=== PATIENT | male | born 1955 | race American Indian/Alaskan Native ===

== ENCOUNTER 2017-05-21 17:07 | Emergency (ER) | payer SELFPAY ==
[2017-05-21 17:08] VITALS: BMI 22.7
[2017-05-21] MEDS ORDERED: Sodium Chloride 0.9% 1,000 ML IV STA (17:30)
--- NOTE | 2017-05-21 17:33 | ED PDOC ---
Arrival/HPI - General Chief Complaint: Alcohol Ingestion Time Seen by Provider: 05/21/17 17:29 Historian: Patient - History of Present Illness Narrative History of Present Illness (Text): 05/21/17 17:30 61 year old male presents to the Emergency department due to alcohol intoxication. Patient is not communicating/cooperating verbally. Patient is able to move extremities. Although patient is not answering questions, he does not have any overt complaints. Time/Duration: Prior to Arrival Symptom Onset: Gradual Symptom Course: Unchanged Context: Home Past Medical History - Provider Review Nursing Documentation Reviewed: Yes - Infectious Disease Hx of Infectious Diseases: None - Psychiatric Hx Psychophysiologic Disorder: No Hx Substance Use: No - Suicidal Assessment Feels Threatened In Home Enviroment: No Family/Social History - Physician Review Nursing Documentation Reviewed: Yes Smoking Status: Heavy Smoker > 10 Cigarettes Daily Hx Alcohol Use: Yes Hx Substance Use: No Allergies/Home Meds Allergies/Adverse Reactions: Allergies No Known Allergies Allergy (Verified 04/23/16 14:20) Home Medications: Home Meds Medication Instructions Recorded Confirmed No Known Home Med [No Known Home 04/23/14 04/23/16 Med] Review of Systems - Physician Review All systems were reviewed & negative as marked: Yes - Review of Systems Constitutional: Normal Eyes: Normal ENT: Normal Respiratory: Normal Cardiovascular: Normal Gastrointestinal: Normal Genitourinary Male: Normal Musculoskeletal: Normal Skin: Normal Endocrine: Normal Hemo/Lymphatic: Normal Physical Exam Vital Signs Temp Pulse Resp BP Pulse Ox 05/21/17 19:10 98 F 73 20 117/71 97 05/21/17 17:31 98.1 F 73 18 126/82 99 - Systems Exam Head: Present: Atraumatic, Normocephalic Pupils: Present: PERRL Conjunctiva: Present: Normal Mouth: Present: Moist Mucous Membranes Neck: Present: Normal Range of Motion Respiratory/Chest: Present: Clear to Auscultation, Good Air Exchange. No: Respiratory Distress, Accessory Muscle Use Cardiovascular: Present: Regular Rate and Rhythm, Normal S1, S2. No: Murmurs Abdomen: Present: Normal Bowel Sounds. No: Tenderness, Distention, Peritoneal Signs Back: Present: Normal Inspection Upper Extremity: Present: Normal Inspection. No: Cyanosis, Edema Skin: Present: Warm, Dry, Normal Color. No: Rashes Medical Decision Making ED Course and Treatment: 05/21/17 17:34 You were treated in the ED today for alcohol intoxication otherwise without any nausea/vomiting/headache/dizziness/difficulty breathing/chest pain/abdomen pain/ numbness/tingling/loss of limb function/pain with urination. You were otherwise breathing easily, good strength/sensation, clear lungs, no abdomen tenderness. your alcohol level 457. trop negative. alcohol 457. 05/21/17 19:13 1:1 for safety 05/21/17 20:00 soft 4pt restraints and 1:1 for safety. 05/21/17 23:35 ativan given 2mg and 2mg. CT head no ICH. white matter changes. signed out to Dr. Vieyra to fu sober status and disposition. - Lab Interpretations Lab Results: 05/21/17 18:45 05/21/17 18:45 Lab Results 05/21/17 18:45: Alcohol, Quantitative 457 H* 05/21/17 18:45: Salicylates < 1 L, Acetaminophen < 10.0 L 05/21/17 18:45: Sodium 148, Potassium 4.3, Chloride 109 H, Carbon Dioxide 26, Anion Gap 17, BUN 12, Creatinine 0.9, Est GFR ( Amer) > 60, Est GFR (Non- Af Amer) > 60, Random Glucose 89, Calcium 9.4, Total Bilirubin 0.2, AST 49, ALT 29, Alkaline Phosphatase 82, Troponin I < 0.01, Total Protein 7.9, Albumin 4.3, Globulin 3.6, Albumin/Globulin Ratio 1.2 05/21/17 18:45: WBC 6.1, RBC 3.93, Hgb 13.3 L, Hct 38.6 L, MCV 98.2, MCH 33.8, MCHC 34.5, RDW 12.6, Plt Count 246, MPV 9.2, Gran % 30.2 L, Lymph % (Auto) 62.1 H, [place] % (Auto) 6.0, Eos % (Auto) 1.2 L, Baso % (Auto) 0.5, Gran # 1.83, Lymph # 3.8 H, [place] # 0.4, Eos # 0.1, Baso # 0.03 05/21/17 17:47: POC Glucose (mg/dL) 82 I have reviewed the lab results: Yes - RAD Interpretation Radiology Orders: 05/21/17 17:32 HEAD W/O CONTRAST [CT] Stat Building Cleaner: Radiologist - EKG Interpretation Interpreted by ED Physician: Yes (NSR, flipped t waves avr, flattened avl) Type: 12 lead EKG - Medication Orders Current Medication Orders: Discontinued Medications Sodium Chloride (Sodium Chloride 0.9%) 1,000 mls @ 1,000 mls/hr IV .Q1H STA Stop: 05/21/17 18:29 Last Admin: 05/21/17 19:13 Dose: 1,000 mls/hr eMAR Start Stop Document 05/21/17 19:13 GMI (Rec: 05/21/17 19:13 GMI [id number]) Intravenous Solution Start Date 05/21/17 Start Time 19:13 End Date 05/21/17 End time 19:13 Total Infusion Time 0 Lorazepam (Ativan) 2 mg IVP ONCE ONE PRN Reason: Protocol Stop: 05/21/17 20:00 Last Admin: 05/21/17 20:20 Dose: 2 mg IVP Administration Document 05/21/17 20:20 IT (Rec: 05/21/17 20:20 IT [id number]) Charges for Administration # of IVP Administrations 1 Lorazepam (Ativan) 2 mg IVP ONCE ONE PRN Reason: Protocol Stop: 05/21/17 21:51 Last Admin: 05/21/17 22:04 Dose: 2 mg IVP Administration Document 05/21/17 22:04 IT (Rec: 05/21/17 22:04 IT [id number]) Charges for Administration # of IVP Administrations 1 - Scribe Statement The provider has reviewed the documentation as recorded by the Deysi Banegas Provider Scribe Attestation: All medical record entries made by the Dawitibtwyla were at my direction and personally dictated by me. I have reviewed the chart and agree that the record accurately reflects my personal performance of the history, physical exam, medical decision making, and the department course for this patient. I have also personally directed, reviewed, and agree with the discharge instructions and disposition. Disposition/Present on Arrival - Present on Arrival Any Indicators Present on Arrival: No History of DVT/PE: No History of Uncontrolled Diabetes: No Urinary Catheter: No History of Decub. Ulcer: No History Surgical Site Infection Following: None - Disposition Have Diagnosis and Disposition been Completed?: Yes Diagnosis: Alcohol intoxication Referrals: [employer] [facility], [Primary Care Provider] - Follow up with primary Forms: [employer] (Citizen Of [place])
[2017-05-21 19:07] LABS: BASO # 0.03 K/mm3 (0.0-2.0); BASO % 0.5 % (0.0-3.0); EOS # 0.1 (0.0-0.7); EOS % 1.2 % (1.5-5.0); GRAN # 1.83 (1.4-6.5); GRAN % 30.2 % (50.0-68.0); HEMOGLOBIN 13.3 g/dL (14.0-18.0); LYMPH # 3.8 (1.2-3.4); LYMPH % 62.1 % (22.0-35.0); MEAN CELL VOLUME 98.2 fl (80.0-105.0); MEAN CORPUSCULAR HEMOGLOBIN 33.8 pg (25.0-35.0); MEAN CORPUSCULAR HGB CONC 34.5 g/dl (31.0-37.0); MEAN PLATELET VOLUME 9.2 fl (7.0-11.0); MONO # 0.4 (0.1-0.6); RBC 3.93 10^6/uL (3.5-6.1); RED CELL DISTRIBUTION WIDTH 12.6 % (11.5-14.5); WHITE BLOOD COUNT 6.1 10^3/ul (4.5-11.0)
[2017-05-21 19:11] VITALS: TEMP 98
[2017-05-21 19:18] LABS: ALB/GLOB RATIO 1.2 (1.1-1.8); ALBUMIN 4.3 g/dL (3.0-4.8); ALT/SGPT 29 U/L (7-56); AST/SGOT 49 U/L (17-59); BLOOD UREA NITROGEN 12 mg/dL (7-21); CALCIUM 9.4 mg/dL (8.4-10.5); GFR AFRICAN-AMERICAN > 60; GFR NON-AFRICAN AMERICAN > 60
[2017-05-21 19:19] LABS: ACETAMINOPHEN < 10.0 ug/ml (10.0-20.0); SALICYLATE < 1 mg/dL (2.0-20.0)
[2017-05-21 19:29] LABS: TROPONIN I < 0.01 ng/mL
--- NOTE | 2017-05-21 23:02 | CT ---
EXAM: CT Head Without Intravenous Contrast CLINICAL HISTORY: 61 years old, male; Screening exam; Additional info: 61yom, ETOH, found on ground TECHNIQUE: Axial computed tomography images of the head/brain without intravenous contrast. All CT scans at this facility use one or more dose reduction techniques, viz.: automated exposure control; ma/kV adjustment per patient size (including targeted exams where dose is matched to indication; i.e. head); or iterative reconstruction technique. Coronal and sagittal reformatted images were created and reviewed. COMPARISON: CT - HEAD W/O CONTRAST 2016-04-23 15:55 FINDINGS: Brain: Gijs-qg-cyuuoegy atrophy. No intracranial hemorrhage. No mass. Few scattered foci of decreased attenuation within periventricular/subcortical white matter. No definite edema. Ventricles: No hydrocephalus. Bones/joints: No acute fracture. Soft tissues: Unremarkable. Vasculature: Atherosclerotic disease of intracranial arteries. Sinuses: Postsurgical changes. Woft-oc-eddikhkz mucosal thickening of LEFT maxillary sinus. Mastoid air cells: No mastoid effusion. Orbits: Unremarkable as visualized. IMPRESSION: 1. Nonspecific white matter changes. Acute infarction may be CT occult within first 24 hours. If a focal deficit persists, consider followup CT or MRI for further evaluation. 2. Incidental/non-acute findings are described above.
--- NOTE | 2017-05-22 00:09 | ED PDOC ---
Physical Exam Vital Signs Temp Pulse Resp BP Pulse Ox 05/22/17 05:54 68 17 134/78 98 05/22/17 03:01 62 17 110/72 98 05/22/17 00:04 64 17 120/82 98 05/21/17 19:10 98 F 73 20 117/71 97 05/21/17 17:31 98.1 F 73 18 126/82 99 Finger Stick Blood Glucose: 82 Medical Decision Making ED Course and Treatment: 05/21/17 23:00 Case endorsed to me by Dr. Polk, pending sobriety, re-assessment, and final disposition. 05/22/17 05:56 Pt awake, alert, ambulating with steady gait, Clinically sober. pt stable for d/ c. - Lab Interpretations Lab Results: 05/21/17 18:45 05/21/17 18:45 Lab Results 05/21/17 18:45: Alcohol, Quantitative 457 H* 05/21/17 18:45: Salicylates < 1 L, Acetaminophen < 10.0 L 05/21/17 18:45: Sodium 148, Potassium 4.3, Chloride 109 H, Carbon Dioxide 26, Anion Gap 17, BUN 12, Creatinine 0.9, Est GFR ( Amer) > 60, Est GFR (Non- Af Amer) > 60, Random Glucose 89, Calcium 9.4, Total Bilirubin 0.2, AST 49, ALT 29, Alkaline Phosphatase 82, Troponin I < 0.01, Total Protein 7.9, Albumin 4.3, Globulin 3.6, Albumin/Globulin Ratio 1.2 05/21/17 18:45: WBC 6.1, RBC 3.93, Hgb 13.3 L, Hct 38.6 L, MCV 98.2, MCH 33.8, MCHC 34.5, RDW 12.6, Plt Count 246, MPV 9.2, Gran % 30.2 L, Lymph % (Auto) 62.1 H, [place] % (Auto) 6.0, Eos % (Auto) 1.2 L, Baso % (Auto) 0.5, Gran # 1.83, Lymph # 3.8 H, [place] # 0.4, Eos # 0.1, Baso # 0.03 05/21/17 17:47: POC Glucose (mg/dL) 82 - RAD Interpretation Radiology Orders: 05/21/17 17:32 HEAD W/O CONTRAST [CT] Stat - Medication Orders Current Medication Orders: Discontinued Medications Sodium Chloride (Sodium Chloride 0.9%) 1,000 mls @ 1,000 mls/hr IV .Q1H STA Stop: 05/21/17 18:29 Last Admin: 05/21/17 19:13 Dose: 1,000 mls/hr eMAR Start Stop Document 05/21/17 19:13 GMI (Rec: 05/21/17 19:13 GMI [id number]) Intravenous Solution Start Date 05/21/17 Start Time 19:13 End Date 05/21/17 End time 19:13 Total Infusion Time 0 Lorazepam (Ativan) 2 mg IVP ONCE ONE PRN Reason: Protocol Stop: 05/21/17 20:00 Last Admin: 05/21/17 20:20 Dose: 2 mg IVP Administration Document 05/21/17 20:20 IT (Rec: 05/21/17 20:20 IT [id number]) Charges for Administration # of IVP Administrations 1 Lorazepam (Ativan) 2 mg IVP ONCE ONE PRN Reason: Protocol Stop: 05/21/17 21:51 Last Admin: 05/21/17 22:04 Dose: 2 mg IVP Administration Document 05/21/17 22:04 IT (Rec: 05/21/17 22:04 IT [id number]) Charges for Administration # of IVP Administrations 1 Disposition/Present on Arrival - Present on Arrival Any Indicators Present on Arrival: No History of DVT/PE: No History of Uncontrolled Diabetes: No Urinary Catheter: No History of Decub. Ulcer: No History Surgical Site Infection Following: None - Disposition Have Diagnosis and Disposition been Completed?: Yes Diagnosis: Alcohol intoxication Disposition: HOME/ ROUTINE Disposition Time: 05:56 Condition: GOOD Discharge Instructions (ExitCare): Alcohol Intoxication (ED) Referrals: [facility] [facility], [Non-Staff] - Follow up with primary Forms: [employer] (Citizen Of [place])
[2017-05-22 06:06] LABS: URINE BILIRUBIN NEGATIVE (NEGATIVE); URINE BLOOD NEGATIVE (NEGATIVE); URINE GLUCOSE (UA) NEGATIVE (NEGATIVE); URINE LEUKOCYTE ESTERASE TRACE Leu/uL (NEGATIVE); URINE NITRATE NEGATIVE (NEGATIVE); URINE PROTEIN NEGATIVE mg/dL (<30 mg/dL); URINE UROBILINOGEN 0.2 E.U./dL (<1 E.U./dL)
[2017-05-22 06:11] LABS: URINE APPEARANCE CLEAR (CLEAR); URINE COLOR STRAW (YELLOW)
[2017-05-22 06:28] LABS: BARBITURATES, UR NEGATIVE (NEGATIVE); BENZODIAZEPINES, UR NEGATIVE (NEGATIVE); OPIATES, UR NEGATIVE (NEGATIVE); PHENCYCLIDINE, UR NEGATIVE (NEGATIVE)
[2017-05-22 06:34] LABS: URINE EPITHELIAL CELLS 0 - 2 /hpf (0-5); URINE RBC 0 - 2 /hpf (0-2); URINE WBC 0 - 2 /hpf (0-6)
--- NOTE | 2017-05-22 09:35 | CARD ---
APPROVED REPORT EKG Measurement Heart [id number] <Conclusion> Normal sinus rhythm LAD
[2017-05-22 09:38] VITALS: BP 116/75; PULSE 73; RESP 18; O2SAT 98
== END 2017-05-22 09:40 | disposition home or self-care (01) ==
LOC: ED 17:07
DX: F10.129 Alcohol abuse with intoxication, unspecified (principal); F17.210 Nicotine dependence, cigarettes, uncomplicated
CPT/HCPCS: 70450; 80053; 81001; 82948; 84484; 85025; 87086; 93005; 96374; 96376; 99285; G0480; J2060; J7040

== ENCOUNTER 2018-01-22 06:34 | Inpatient (IN) | payer MEDICAID, OTHER ==
[2018-01-22 07:32] LABS: BASO # 0.02 K/mm3 (0.0-2.0); BASO % 0.4 % (0.0-3.0); EOS % 0.2 % (1.5-5.0); GRAN # 3.33 (1.4-6.5); GRAN % 63.5 % (50.0-68.0); LYMPH # 1.5 (1.2-3.4); LYMPH % 28.8 % (22.0-35.0); MEAN CORPUSCULAR HEMOGLOBIN 32.7 pg (25.0-35.0); MEAN CORPUSCULAR HGB CONC 33.7 g/dl (31.0-37.0); MONO # 0.4 (0.1-0.6); MONO % 7.1 % (1.0-6.0); RBC 3.67 10^6/uL (3.5-6.1); RED CELL DISTRIBUTION WIDTH 12.8 % (11.5-14.5); WHITE BLOOD COUNT 5.2 10^3/ul (4.5-11.0)
--- NOTE | 2018-01-22 07:36 | ED PDOC ---
Arrival/HPI - General Historian: Patient, Spouse EM Caveat: Altered Mental Status - History of Present Illness Time/Duration: Prior to Arrival Symptom Onset: Sudden Activities at Onset: Rest Context: Sitting, Home <Daryn Cheung - Last Filed: 01/22/18 18:21> <Neo Bacon DO - Last Filed: 01/22/18 18:41> - General Chief Complaint: Altered Mental Status Time Seen by Provider: 01/22/18 07:04 - History of Present Illness Narrative History of Present Illness (Text): 01/22/18 07:30 62 yo M with Past medical history of alcohol abuse presenting to Emergency department for AMS and apparent seizure episode after found him shaking on couch. Patient at bedside is alert but minimally verbal. History obtained by at bedside. Per , patient had diarrhea and went to the bathroom. He then sat on the couch and watched tv when he began to shake. endorses LOC as patient was not responsive, continued shaking for about 5-10 mins, fell off the couch while shaking. Denies any head trauma. Denies any hx of seizures or past seizure-type activity. No fevers/chills, headaches, dizziness, chest pain, palpitations, sob, cough, abdominal pain, nausea/vomiting/constipation, dysuria , or changes in stool. Past medical history : alcohol abuse PSHx: denies Allergies: NKDA Home medications: denies Family Hx: denies Social Hx: alcohol: per -2 cans beer/day, per -"alot" tobacco: 1 ppd for several years denies illicit drug use 01/22/18 07:37 01/22/18 07:37 (Daryn Cheung) Past Medical History - Provider Review Nursing Documentation Reviewed: Yes - Travel History Have you recently traveled outside [place] w/in the past 3 mons?: No - Infectious Disease Hx of Infectious Diseases: None - Past Medical History Past Medical History: No Previous (No chronic diseases) - Psychiatric Hx Psychophysiologic Disorder: No Hx Substance Use: No - Past Surgical History Past Surgical History: No Previous - Anesthesia Hx Anesthesia: No - Suicidal Assessment Feels Threatened In Home Enviroment: No <Daryn Cheung - Last Filed: 01/22/18 18:21> <Neo Bacon DO - Last Filed: 01/22/18 18:41> - Patient History Narrative Patient History: alcohol abuse (Daryn Cehung) Family/Social History - Physician Review Nursing Documentation Reviewed: Yes Family/Social History: No Known Family HX Smoking Status: Heavy Smoker > 10 Cigarettes Daily Hx Alcohol Use: Yes Frequency of alcohol use: Daily Hx Substance Use: No <Daryn Cheung - Last Filed: 01/22/18 18:21> Allergies/Home Meds <Daryn Cheung - Last Filed: 01/22/18 18:21> <Neo Bacon DO - Last Filed: 01/22/18 18:41> Allergies/Adverse Reactions: Allergies No Known Allergies Allergy (Verified 04/23/16 14:20) Review of Systems - Physician Review All systems were reviewed & negative as marked: Yes - Review of Systems Constitutional: Normal Eyes: Normal ENT: Normal Respiratory: Normal Cardiovascular: Normal Gastrointestinal: Diarrhea. absent: Abdominal Pain, Constipation, Nausea, Vomiting Genitourinary Male: Normal Musculoskeletal: Normal Skin: Normal Neurological: Normal Endocrine: Normal Hemo/Lymphatic: Normal Psychiatric: Normal <Daryn Cheung - Last Filed: 01/22/18 18:21> Physical Exam Vital Signs Reviewed: Yes Blood Pressure: Hypertensive Pulse: Regular Respiratory Rate: Normal Appearance: Positive for: Non-Toxic, Comfortable Pain Distress: None Mental Status: Positive for: Confused, other (A&Ox2) Finger Stick Blood Glucose: 136 - Systems Exam Head: Present: Atraumatic, Normocephalic Extroacular Muscles: Present: EOMI Mouth: Present: Moist Mucous Membranes Pharnyx: Present: Normal Nose (External): Present: Atraumatic Nose (Internal): Present: Normal Inspection Neck: Present: Normal Range of Motion Respiratory/Chest: Present: Clear to Auscultation, Accessory Muscle Use. No: Wheezes, Rales, Rhonchi Cardiovascular: Present: Regular Rate and Rhythm, Normal S1, S2. No: Murmurs Abdomen: Present: Normal Bowel Sounds. No: Tenderness, Distention, Rebound, Guarding Upper Extremity: Present: Normal Inspection, NORMAL PULSES, Capillary Refill < 2s Lower Extremity: Present: Normal Inspection, NORMAL PULSES, Capillary Refill < 2 s Neurological: Present: CN II-XII Intact, Speech Normal Skin: Present: Warm, Dry, Normal Color Psychiatric: Present: Alert (A&Ox2) <Daryn Cheung - Last Filed: 01/22/18 18:21> Vital Signs Temp Pulse Resp BP Pulse Ox 01/22/18 11:56 98.1 F 19 98 01/22/18 08:30 98.0 F 75 19 150/70 99 01/22/18 06:42 71 18 152/62 H 98 Medical Decision Making - EKG Interpretation Interpreted by ED Physician: Yes Type: 12 lead EKG <Daryn Cheung - Last Filed: 01/22/18 18:21> - RAD Interpretation Hand Trucker: Radiologist <Arleen Neo - Last Filed: 01/22/18 18:41> ED Course and Treatment: 01/22/18 07:59 Impression: withdrawal symptoms 2/2 alcohol abuse Differential Diagnosis included but are not limited to: alcohol abuse withdrawal symptoms due to alcohol abuse Plan: -- CBC, CMP -- UDS -- EKG -- CT head -- Chest X-Ray -- Urinalysis -- Reassess and disposition Prior Visits: Notes and results from previous visits were reviewed. Patient was last seen in the emergency department on 05/21/2017 for alcohol abuse Progress Notes: (Daryn Cheung) 01/22/18 08:00 Impression: 62 year old male presents to the Emergency department for AMS and apparent seizure episode after found him shaking on couch. Patient Seen with Resident: In agreement with resident note which contains more details about the patient. Patient seen and evaluated with resident. Came up with plan and treatment together. Prior Visits: Notes and results from previous visits were reviewed. Patient was last seen in the emergency department on 05/21/17 due to alcohol intoxication. Patient was discharged home and directed to follow up with PMD. Progress Notes: X-Ray of chest reviewed by radiologist, shows: Dictator : Star Nicholson MD Report Date : 01/22/2018 09:06:59 FINDINGS: LUNGS: Lungs appear hyperinflated which may be secondary to emphysema or COPD. Slight cord increased/coarsened interstitial markings both lung bases right greater than left. In addition, there is also minor discrete linear atelectasis/ scarring changes right lung base.. There is a vague elliptical shaped density which overlies the inferolateral margin of the right scapula that may represent bony artifact related to the scapula itself or possibly a bone island/osteoma however the possibility of a parenchymal nodule not completely excluded. Followup nonemergent CT scan of the chest recommended. PLEURA: No significant pleural effusion identified, no pneumothorax apparent. CARDIOVASCULAR: Normal. OSSEOUS STRUCTURES: No significant abnormalities. VISUALIZED UPPER ABDOMEN: Normal. OTHER FINDINGS: None. IMPRESSION: Lungs appear hyperinflated which may be secondary to emphysema or COPD. Slight cord increased/coarsened interstitial markings both lung bases right greater than left. In addition, there is also minor discrete linear atelectasis/ scarring changes right lung base.. There is a vague elliptical shaped density which overlies the inferolateral margin of the right scapula that may represent bony artifact related to the scapula itself or possibly a bone island/osteoma however the possibility of a parenchymal nodule not completely excluded. Followup nonemergent CT scan of the chest recommended. CT of head reviewed by radiologist, shows: Dictator : Star Nicholson MD Report Date : 01/22/2018 09:45:54 FINDINGS: HEMORRHAGE: No acute parenchymal, subarachnoid or extra-axial hemorrhage. BRAIN: Moderate diffuse/chronic periventricular white matter ischemic changes are again seen extending peripherally into the deep and subcortical white matter both cerebral hemispheres.,. Additionally, there may also be a few tiny chronic bilateral basal nuclei lacunar type infarcts note that the possibility of a small hyperacute infarct not excluded. Clinical correlation recommended. Moderate generalized volume loss. Minor vascular calcifications both carotid siphons VENTRICLES: No obstructive hydrocephalus. CALVARIUM: Calvarium intact. PARANASAL SINUSES: Unremarkable as visualized. No significant inflammatory changes. MASTOID AIR CELLS: Unremarkable as visualized. No inflammatory changes. OTHER FINDINGS: None. IMPRESSION: No acute intracranial hemorrhage. Moderate chronic white matter ischemic changes with a few scattered chronic bilateral basal nuclei lacunar type infarcts. Moderate generalized volume loss. 01/22/18 10:[address] Heredia who is aware of and agrees with plan. Patient will be admitted to remote telemetry. (Neo Bacon DO) - Lab Interpretations Lab Results: 01/22/18 07:10 01/22/18 07:10 Lab Results 01/22/18 09:12: Urine Opiates Screen Negative, Urine Methadone Screen Negative, Ur Barbiturates Screen Negative, Ur Phencyclidine Scrn Negative, Ur Amphetamines Screen Negative, U Benzodiazepines Scrn Negative, U Oth Cocaine Metabols Negative, U Cannabinoids Screen Negative 01/22/18 09:12: Urine Color Yellow, Urine Appearance Clear, Urine pH 6.0, Ur Specific [place] >= 1.030, Urine Protein 100 H, Urine Glucose (UA) Negative, Urine Ketones 15 H, Urine Blood Trace-lysed H, Urine Nitrate Negative, Urine Bilirubin Negative, Urine Urobilinogen 0.2, Ur Leukocyte Esterase Negative, Urine RBC 2 - 5, Urine WBC 0 - 2, Ur Epithelial Cells 0 - 2, Amorphous Sediment Few, Urine Bacteria Many, Coarse Granular Casts Trace H 01/22/18 07:10: Alcohol, Quantitative < 10 01/22/18 07:10: Sodium 136, Potassium 4.5, Chloride 99, Carbon Dioxide 21, Anion Gap 20, BUN 6 L, Creatinine 0.8, Est GFR ( Amer) > 60, Est GFR (Non -Af Amer) > 60, Random Glucose 137 H, Calcium 9.3, Phosphorus 4.1, Magnesium 1.5 L, Total Bilirubin 0.8, AST 123 H D, ALT 42, Alkaline Phosphatase 90, Lactate Dehydrogenase 529, Total Creatine Kinase 214, Troponin I < 0.01, Total Protein 7.9, Albumin 4.5, Globulin 3.4, Albumin/Globulin Ratio 1.3, Triglycerides 81, Cholesterol 218 H, LDL Cholesterol Direct 86, HDL Cholesterol 110 H 01/22/18 07:10: WBC 5.2, RBC 3.67, Hgb 12.0 L, Hct 35.6 L, MCV 97.0, MCH 32.7, MCHC 33.7, RDW 12.8, Plt Count 191, MPV 10.0, Gran % 63.5, Lymph % (Auto) 28.8, [place] % (Auto) 7.1 H, Eos % (Auto) 0.2 L, Baso % (Auto) 0.4, Gran # 3.33, Lymph # (Auto) 1.5, [place] # (Auto) 0.4, Eos # (Auto) 0.0, Baso # (Auto) 0.02 - RAD Interpretation Radiology Orders: 01/22/18 07:10 CHEST PORTABLE [RAD] Stat 01/22/18 07:11 HEAD W/O CONTRAST [CT] Stat - EKG Interpretation EKG Interpretation (Text): 01/22/18 07:54 NSR 68bpm, possible L atrial enlargement 01/22/18 09:19 (Daryn Cheung) - Medication Orders Current Medication Orders: Albuterol/Ipratropium (Duoneb 3 Mg/0.5 Mg (3 Ml) Ud) 3 ml IH Q6H PRN PRN Reason: Shortness of Breath Famotidine (Pepcid) 20 mg IVP DAILY CRISTAL Folic Acid (Folic Acid) 1 mg PO DAILY CRISTAL Heparin Sodium (Porcine) (Heparin) 5,000 units SC Q12 CRISTAL PRN Reason: Protocol Multivitamins/Vitamin C 10 ml/Thiamine HCl 100 mg/ Folic Acid 1 mg/ Sodium Chloride 1,011.2 mls @ 100 mls/hr IV .Q10H7M ONE Stop: 01/22/18 19:34 Last Admin: 01/22/18 11:03 Dose: 100 mls/hr eMAR Start Stop Document 01/22/18 11:03 [email or web address] (Rec: 01/22/18 11:03 [email or web address] [id number]) Intravenous Solution Start Date 01/22/18 Start Time 11:03 Lorazepam (Ativan) 1 mg IVP Q4H PRN; Protocol PRN Reason: Seizure activity Last Admin: 01/22/18 14:41 Dose: 1 mg IVP Administration Document 01/22/18 14:41 [facility] (Rec: 01/22/18 14:[facility] Charges for Administration # of IVP Administrations 1 Behavioural Document 01/22/18 14:41 [facility] (Rec: 01/22/18 14:42 [facility] Maintenance Maintenance Dose No Nonmedicinal Nonmedicinal Interventions Redirect Therapeutic Communication Behavior Behavior for Medication: Anxiety Behavior Comment etoh wd; tremors, mild anxiety , mild agitation Re-Assess: Reassess Psych Meds Document 01/22/18 15:11 [facility] (Rec: 01/22/18 16:58 [id number]) Reassess Psych Med Effective Multivitamins (Thera Tab) 1 tab PO DAILY CRISTAL Nicotine (Nicoderm Cq) 1 patch TD DAILY CRISTAL Ondansetron HCl (Zofran Inj) 4 mg IVP Q6H PRN PRN Reason: Nausea/Vomiting Thiamine HCl (Vitamin B1 Tab) 100 mg PO DAILY CRISTAL Discontinued Medications Magnesium Sulfate (Magnesium Sulfate 2 Gm/50 Ml Water) 2 gm in 50 mls @ 50 mls/ hr IVPB ONCE ONE Stop: 01/22/18 10:44 Last Admin: 01/22/18 11:04 Dose: 50 mls/hr eMAR Start Stop Document 01/22/18 11:04 [email or web address] (Rec: 01/22/18 11:04 [email or web address] [id number]) Intravenous Solution Start Date 01/22/18 Start Time 11:04 Ceftriaxone Sodium (Rocephin 1 Gram Ivpb) 1 gm in 100 mls @ 100 mls/hr IVPB STAT STA PRN Reason: Protocol Stop: 01/22/18 11:33 Last Admin: 01/22/18 12:41 Dose: Not Given Non-Admin Reason: Patient Refused Magnesium Sulfate (Magnesium Sulfate 2 Gm/50 Ml Water) 2 gm in 50 mls @ 50 mls/ hr IVPB ONCE ONE Stop: 01/22/18 11:42 Last Admin: 01/22/18 11:21 Dose: 50 mls/hr eMAR Start Stop Document 01/22/18 11:21 [email or web address] (Rec: 01/22/18 11:21 [email or web address] [id number]) Intravenous Solution Start Date 01/22/18 Start Time 11:21 Lorazepam (Ativan) 2 mg IVP STAT STA PRN Reason: Protocol Stop: 01/22/18 09:31 Last Admin: 01/22/18 11:04 Dose: 2 mg IVP Administration Document 01/22/18 11:04 [email or web address] (Rec: 01/22/18 11:04 [email or web address] [id number]) Charges for Administration # of IVP Administrations 1 Pneumococcal Polyvalent Vaccine (Pneumovax 23 Vaccine) 0.5 ml IM .ONCE ONE Stop: 01/22/18 14:03 <Daryn Cheung - Last Filed: 01/22/18 18:21> - PA / POSTAL SUPERVISOR / Resident Statement [facility] has reviewed & agrees with the documentation as recorded. [facility] has examined the patient and agrees with the treatment plan. - Scribe Statement The provider has reviewed the documentation as recorded by the Scribe <Neo Bacon DO - Last Filed: 01/22/18 18:41> - Scribe Statement Rashmi Erwin All medical record entries made by the Scribe were at my direction and personally dictated by me. I have reviewed the chart and agree that the record accurately reflects my personal performance of the history, physical exam, medical decision making, and the department course for this patient. I have also personally directed, reviewed, and agree with the discharge instructions and disposition. (Neo Bacon DO) Disposition/Present on Arrival - Present on Arrival Any Indicators Present on Arrival: No History of DVT/PE: No History of Uncontrolled Diabetes: No Urinary Catheter: No History of Decub. Ulcer: No History Surgical Site Infection Following: None - Disposition Have Diagnosis and Disposition been Completed?: Yes Disposition Time: 10:35 <Daryn Cheung - Last Filed: 01/22/18 18:21> - Disposition Disposition Time: 09:30 <Neo Bacon DO - Last Filed: 01/22/18 18:41> - Disposition Diagnosis: Withdrawal symptoms, alcohol Disposition: HOSPITALIZED Patient Problems: Current Active Problems Problem Status Onset Withdrawal symptoms, alcohol Acute Condition: STABLE
[2018-01-22 07:40] LABS: ALB/GLOB RATIO 1.3 (1.1-1.8); ALBUMIN 4.5 g/dL (3.0-4.8); ALT/SGPT 42 U/L (7-56); AST/SGOT 123 U/L (17-59); BLOOD UREA NITROGEN 6 mg/dL (7-21); CALCIUM 9.3 mg/dL (8.4-10.5); GFR NON-AFRICAN AMERICAN > 60
[2018-01-22 07:50] LABS: TROPONIN I < 0.01 ng/mL
--- NOTE | 2018-01-22 09:08 | RAD ---
Date of service: 01/22/2018 HISTORY: r/o infiltrate COMPARISON: No prior study available for comparison. FINDINGS: LUNGS: Lungs appear hyperinflated which may be secondary to emphysema or COPD. Slight cord increased/coarsened interstitial markings both lung bases right greater than left. In addition, there is also minor discrete linear atelectasis/scarring changes right lung base.. There is a vague elliptical shaped density which overlies the inferolateral margin of the right scapula that may represent bony artifact related to the scapula itself or possibly a bone island/osteoma however the possibility of a parenchymal nodule not completely excluded. Followup nonemergent CT scan of the chest recommended. PLEURA: No significant pleural effusion identified, no pneumothorax apparent. CARDIOVASCULAR: Normal. OSSEOUS STRUCTURES: No significant abnormalities. VISUALIZED UPPER ABDOMEN: Normal. OTHER FINDINGS: None. IMPRESSION: Lungs appear hyperinflated which may be secondary to emphysema or COPD. Slight cord increased/coarsened interstitial markings both lung bases right greater than left. In addition, there is also minor discrete linear atelectasis/scarring changes right lung base.. There is a vague elliptical shaped density which overlies the inferolateral margin of the right scapula that may represent bony artifact related to the scapula itself or possibly a bone island/osteoma however the possibility of a parenchymal nodule not completely excluded. Followup nonemergent CT scan of the chest recommended.
[2018-01-22 09:23] LABS: URINE BILIRUBIN NEGATIVE (NEGATIVE); URINE BLOOD TRACE-LYSED (NEGATIVE); URINE GLUCOSE (UA) NEGATIVE (NEGATIVE); URINE LEUKOCYTE ESTERASE NEGATIVE Leu/uL (NEGATIVE); URINE PROTEIN 100 mg/dL (<30 mg/dL); URINE UROBILINOGEN 0.2 E.U./dL (<1 E.U./dL)
[2018-01-22 09:26] LABS: URINE APPEARANCE CLEAR (CLEAR); URINE COLOR YELLOW (YELLOW)
[2018-01-22 09:28] LABS: URINE BACTERIA MANY (NEG); URINE EPITHELIAL CELLS 0 - 2 /hpf (0-5); URINE WBC 0 - 2 /hpf (0-6)
[2018-01-22] MEDS ORDERED: Multivitamin (MVI) 10 ML, Thiamine 100 MG, Folic Acid 1 MG in Sodium Chloride 0.9% 1,00... IV ONE (09:28)
[2018-01-22 09:29] LABS: URINE AMORPHOUS SEDIMENT FEW; URINE COARSE GRANULAR CAST TRACE /hpf (0-2)
[2018-01-22] MEDS ORDERED: Magnesium Sulfate 1 gm in D5W 1 GM/100 ML BAG IVPB ONE ×2 (09:29→09:31)
[2018-01-22 09:38] LABS: BARBITURATES, UR NEGATIVE (NEGATIVE); BENZODIAZEPINES, UR NEGATIVE (NEGATIVE); OPIATES, UR NEGATIVE (NEGATIVE); PHENCYCLIDINE, UR NEGATIVE (NEGATIVE)
[2018-01-22] MEDS ORDERED: Magnesium Sulfate 2 GM in 50 ml Water IVPB ONE (09:45)
--- NOTE | 2018-01-22 09:45 | CARD ---
APPROVED REPORT Date of service: 01/22/2018 EKG Measurement Heart [id number] <Conclusion> Normal sinus rhythm LAD QS in V1, c/w Septal AK, new since 05/21/17
--- NOTE | 2018-01-22 09:47 | CT ---
Date of service: 01/22/2018 PROCEDURE: CT HEAD WITHOUT CONTRAST. HISTORY: s/p fall - r/o ICH and fx COMPARISON: Comparison made with CT scan of the brain 05/21/2017. TECHNIQUE: Axial computed tomography images were obtained through the head/brain without intravenous contrast. Radiation dose: Total exam DLP = 814.33 mGy-cm. This CT exam was performed using one or more of the following dose reduction techniques: Automated exposure control, adjustment of the mA and/or kV according to patient size, and/or use of iterative reconstruction technique. FINDINGS: HEMORRHAGE: No acute parenchymal, subarachnoid or extra-axial hemorrhage. BRAIN: Moderate diffuse/chronic periventricular white matter ischemic changes are again seen extending peripherally into the deep and subcortical white matter both cerebral hemispheres.,. Additionally, there may also be a few tiny chronic bilateral basal nuclei lacunar type infarcts note that the possibility of a small hyperacute infarct not excluded. Clinical correlation recommended. Moderate generalized volume loss. Minor vascular calcifications both carotid siphons VENTRICLES: No obstructive hydrocephalus. CALVARIUM: Calvarium intact. PARANASAL SINUSES: Unremarkable as visualized. No significant inflammatory changes. MASTOID AIR CELLS: Unremarkable as visualized. No inflammatory changes. OTHER FINDINGS: None. IMPRESSION: No acute intracranial hemorrhage. Moderate chronic white matter ischemic changes with a few scattered chronic bilateral basal nuclei lacunar type infarcts. Moderate generalized volume loss.
[2018-01-22] MEDS ORDERED: cefTRIAXone 1 gm 1 GM/100 ML BAG IVPB STA (10:34)
--- NOTE | 2018-01-22 10:42 | CP.PCM.HP ---
<Alyssa Camara - Last Filed: 01/22/18 13:24> History of Present Illness - History of Present Illness History of Present Illness: Please note history as per at bedside as patient is a poor historian and was ao x 1 to self. 62yo male PMHx EtOH abuse presents s/p witnessed seizure this AM. Patient's noted that he fell to the ground and his entire body and lower jaw were shaking uncontrollably with his eyes rolled back. Patient did not have any loss of bladd er/bowel continence and no biting of the tongue or frothing at the mouth. Patient's reports this was the first time he has had such an episode. She reported he fell to the ground but was unsure if he hit his head. Patient was unsure of when his last drink was and unsure of how much he drinks. Recently he has not complained of any acute fever/chills, chest pain, SOB, nausea, vomiting, bowel/bladder complaints, pain/swelling in his legs. Patient has complained of abdominal pain for the past 3 weeks and saw his PMD Dr. Fu 2 weeks ago and was supposed to have an abdominal u/s done but never followed up. Patient's also disclosed he may have some high cholesterol but was unsure of this and does not take any medications. No recent travel/sick contacts. 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 Fu- last seen 2 weeks ago Pharmacy: [facility] Present on Admission - Present on Admission Any Indicators Present on Admission: No Review of Systems - Review of Systems All systems: reviewed and no additional remarkable complaints except Review of Systems: as per HPI Past Patient History - Infectious Disease Hx of Infectious Diseases: None - Past Social History Smoking Status: Heavy Smoker > 10 Cigarettes Daily - CARDIAC Hx Cardiac Disorders: No Hx Angina: No Hx Atrial Fibrillation: No Hx Cardia Arrhythmia: No Hx Circulatory Problems: No Hx Congestive Heart Failure: No Hx Heart Attack: No Hx Heart Murmur: No Hx Heart Transplant: No Hx Hypertension: No Hx Hypotension: No Hx Internal Defibrillator: No Hx Mitral Valve Prolapse: No Hx Pacemaker: No Hx Peripheral Edema: No Hx Peripheral Vascular Disease: No - PULMONARY Hx Respiratory Disorders: No Hx Asthma: No Hx Bronchitis: No Hx Chronic Obstructive Pulmonary Disease (COPD): No Hx Emphysema: No Hx Lung Cancer: No Hx Pneumonia: No Hx Pulmonary Edema: No Hx Pulmonary Embolism: No Hx Respiratory Aspiration: No Hx Respiratory Tract Infection: No Hx Sleep Apnea: No Hx Tuberculosis: No - NEUROLOGICAL Hx Neurological Disorder: No Hx Alzheimer's Disease: No HX Cerebrovascular Accident: No Hx Dementia: No Hx Dizziness: No Hx Meningitis: No Hx Migraine: No Hx Multiple Sclerosis: No Hx Paralysis: No Hx Parkinson's Disease: No Hx Seizures: No Hx Syncope: No Hx Transient Ischemic Attacks (TIA): No Hx Vertigo: No - HEENT Hx HEENT Problems: No Hx Blind: No Hx Cataracts: No Hx Deafness: No Hx Difficulty Chewing: No Hx Epistaxis: No Hx Glaucoma: No Hx Macular Degeneration: No Hx Sinusitis: No - RENAL Hx Chronic Kidney Disease: No Hx Dialysis: No Hx Kidney Stones: No Hx Neurogenic Bladder: No Hx Pyelonephritis: No Hx Renal (Kidney) Cancer: No Hx Renal Failure: No - ENDOCRINE/METABOLIC Hx Endocrine Disorders: No Hx Adrenal Cancer: No Hx Diabetes Insipidus: No Hx Diabetes Mellitus Type 1: No Hx Diabetes Mellitus Type 2: No Hx Hyperthyroidism: No Hx Hypothyroidism: No Hx Systemic Lupus Erythematosus: No - HEMATOLOGICAL/ONCOLOGICAL Hx Blood Disorders: No Hx AIDS: No Hx Anemia: No Hx Blood Transfusions: No Hx Blood Transfusion Reaction: No Hx Bruising: No Hx Cancer: No Hx Chemotherapy: No Hx Cirrhosis: No Hx Gum Bleeding: No Hx Hemophilia: No Hx Hepatitis A: No Hx Hepatitis B: No Hx Hepatitis C: No Hx Leukemia: No Hx Metastesis: No Hx Shingles: No Hx Sickle Cell Disease: No Hx Unexplained Bleeding: No Hx von Willebrand's Disease: No - INTEGUMENTARY Hx Dermatological Problems: No Hx Basil Cell: No Hx Blanco: No Hx Cellulitis: No Hx Eczema: No Hx Melanoma: No Hx Psoriasis: No Hx Squamous Cell: No - MUSCULOSKELETAL/RHEUMATOLOGICAL Hx Musculoskeletal Disorders: No Hx Arthritis: No Hx Back Pain: No Hx Degenerative Joint Disease: No Hx Falls: Yes Hx Fractures: No Hx Gout: No Hx Herniated Disk: No Hx Myasthenia Gravis: No Hx Osteoarthritis: No Hx Osteomyelitis: No Hx Osteoporosis: No Hx Rhabdomyolysis: No Hx Rheumatoid Arthritis: No Hx Spinal Stenosis: No Hx Unsteady Gait: Yes - PSYCHIATRIC Hx Psychophysiologic Disorder: No Hx Substance Use: No - SURGICAL HISTORY Hx Surgeries: No (denies) - ANESTHESIA Hx Anesthesia: No Meds Allergies/Adverse Reactions: Allergies Allergy/AdvReac Type Severity Reaction Status Date / Time No Known Allergies Allergy Verified 04/23/16 14:20 Physical Exam - Constitutional Appears: Non-toxic, No Acute Distress, Confused - Head Exam Head Exam: ATRAUMATIC, NORMAL INSPECTION, NORMOCEPHALIC - Eye Exam Eye Exam: EOMI, Normal appearance, PERRL. absent: Conjunctival injection, Scleral icterus Pupil Exam: NORMAL ACCOMODATION - ENT Exam ENT Exam: Mucous Membranes Dry - Neck Exam Neck exam: Positive for: Full Rom. Negative for: Lymphadenopathy - Respiratory Exam Respiratory Exam: Clear to Auscultation Bilateral, NORMAL BREATHING PATTERN. absent: Accessory Muscle Use, Rales, Rhonchi, Wheezes, Respiratory Distress Additional comments: patient uncooperative with lung exam - Cardiovascular Exam Cardiovascular Exam: +S1, +S2 - GI/Abdominal Exam GI & Abdominal Exam: Normal Bowel Sounds, Soft. absent: Distended, Firm, Guarding, Tenderness - Rectal Exam Rectal Exam: Deferred - Extremities Exam Extremities exam: Positive for: normal capillary refill, normal inspection, pedal pulses present. Negative for: pedal edema - Neurological Exam Neurological exam: Alert, Altered - Psychiatric Exam Additional comments: confused ao x 1- patient had just received Ativan for agitation and trying to leave AMA - Skin Skin Exam: Dry, Intact, Normal Color, Warm Results - Vital Signs Recent Vital Signs: Last Vital Signs Temp Pulse 71 01/22/18 06:42 Resp 18 01/22/18 06:42 BP 152/62 H 01/22/18 06:42 Pulse Ox 98 01/22/18 06:42 - Labs Result Diagrams: 01/22/18 07:10 01/22/18 07:10 Labs: Laboratory Results - last 24 hr 01/22/18 01/22/18 01/22/18 07:10 07:10 07:10 WBC 5.2 RBC 3.67 Hgb 12.0 L Hct 35.6 L MCV 97.0 MCH 32.7 MCHC 33.7 RDW 12.8 Plt Count 191 MPV 10.0 Gran % 63.5 Lymph % (Auto) 28.8 Mckinley % (Auto) 7.1 H Eos % (Auto) 0.2 L Baso % (Auto) 0.4 Gran # 3.33 Lymph # (Auto) 1.5 Mckinley # (Auto) 0.4 Eos # (Auto) 0.0 Baso # (Auto) 0.02 Sodium 136 Potassium 4.5 Chloride 99 Carbon Dioxide 21 Anion Gap 20 BUN 6 L Creatinine 0.8 Est GFR ( Amer) > 60 Est GFR (Non-Af Amer) > 60 Random Glucose 137 H Calcium 9.3 Magnesium 1.5 L Total Bilirubin 0.8 AST 123 H D ALT 42 Alkaline Phosphatase 90 Lactate Dehydrogenase 529 Total Creatine Kinase 214 Troponin I < 0.01 Total Protein 7.9 Albumin 4.5 Globulin 3.4 Albumin/Globulin Ratio 1.3 Urine Color Urine Appearance Urine pH Ur Specific Alexander Urine Protein Urine Glucose (UA) Urine Ketones Urine Blood Urine Nitrate Urine Bilirubin Urine Urobilinogen Ur Leukocyte Esterase Urine RBC Urine WBC Ur Epithelial Cells Amorphous Sediment Urine Bacteria Coarse Granular Casts Urine Opiates Screen Urine Methadone Screen Ur Barbiturates Screen Ur Phencyclidine Scrn Ur Amphetamines Screen U Benzodiazepines Scrn U Oth Cocaine Metabols U Cannabinoids Screen Alcohol, Quantitative < 10 01/22/18 01/22/18 09:12 09:12 WBC RBC Hgb Hct MCV MCH MCHC RDW Plt Count MPV Gran % Lymph % (Auto) Mckinley % (Auto) Eos % (Auto) Baso % (Auto) Gran # Lymph # (Auto) Mckinley # (Auto) Eos # (Auto) Baso # (Auto) Sodium Potassium Chloride Carbon Dioxide Anion Gap BUN Creatinine Est GFR ( Amer) Est GFR (Non-Af Amer) Random Glucose Calcium Magnesium Total Bilirubin AST ALT Alkaline Phosphatase Lactate Dehydrogenase Total Creatine Kinase Troponin I Total Protein Albumin Globulin Albumin/Globulin Ratio Urine Color Yellow Urine Appearance Clear Urine pH 6.0 Ur Specific Alexander >= 1.030 Urine Protein 100 H Urine Glucose (UA) Negative Urine Ketones 15 H Urine Blood Trace-lysed H Urine Nitrate Negative Urine Bilirubin Negative Urine Urobilinogen 0.2 Ur Leukocyte Esterase Negative Urine RBC 2 - 5 Urine WBC 0 - 2 Ur Epithelial Cells 0 - 2 Amorphous Sediment Few Urine Bacteria Many Coarse Granular Casts Trace H Urine Opiates Screen Negative Urine Methadone Screen Negative Ur Barbiturates Screen Negative Ur Phencyclidine Scrn Negative Ur Amphetamines Screen Negative U Benzodiazepines Scrn Negative U Oth Cocaine Metabols Negative U Cannabinoids Screen Negative Alcohol, Quantitative Assessment & Plan - Assessment and Plan (Free Text) Assessment: 62yo male PMHx EtOH abuse presents s/p witnessed seizure this AM. Patient admitted to remote [facility] for further monitoring Plan: New onset seizure -likely secondary to EtOH abuse -CT head: no acute hemorrhage; moderate chronic white matter ischemic changes with few scattered chronic b/l basal nuclei lacunar type infarcts; moderate generalized volume loss -Ativan prn for seizure activity -troponin negative x 1 f/u troponin x 2 -Dr. Ivey neurology consulted Abdominal pain -elevated AST likely secondary to EtOH abuse -f/u acute hep panel -f/u abdominal u/s -avoid hepatotoxic drugs -counseled on alcohol cessation EtOH abuse/withdrawal -Alcohol level < 10 on admission -Banana bag -NPO -start multivitamin/folic acid/thiamine tomorrow -Ativan prn for seizure activity -f/u HIV 4th gen -CIWA protocol -aspiration precautions -seizure precautions -Alcohol/drug counseling Tobacco abuse -CXR: lungs appear hyperinflated which may be secondary to emphysema/COPD. Slight cord increased/coarsened IS markings both lung bases R>L. In addition there is also minor discrete linear atelectasis/scarring changes R lung base. There is vague elliptical shaped density which overlies the inferolateral margin of the R scapula that may represent bony artifact related to trena scapula itself/bone island/osteoma however the possibility of a parenchymal nodule not completely excluded. -recommend CT chest outpatient -Duoneb 3ml inh q6 prn SOB -Nicotine patch -Smoking cessation -recommend pulm f/u outpatient Hx of Hyperlipidemia? -questionable -f/u lipid panel Diet: NPO- ADAT GI ppx: Pepcid 20mg ivp DVT ppx: SCDs and Heparin 5000u q[address] Yan Camara PGY3 <Sharona Heredia R - Last Filed: 01/23/18 16:08> Results - Vital Signs Recent Vital Signs: Last Vital Signs Temp 98.6 F 01/23/18 08:39 Pulse 64 01/23/18 08:39 Resp 20 01/23/18 08:39 BP 124/79 09/25/18 08:39 Pulse Ox 100 01/23/18 08:39 - Labs Result Diagrams: 01/23/18 06:00 01/23/18 06:00 Labs: Laboratory Results - last 24 hr 01/22/18 01/22/18 01/22/18 13:30 13:30 19:01 WBC RBC Hgb Hct MCV MCH MCHC RDW Plt Count MPV Gran % Lymph % (Auto) Mckinley % (Auto) Eos % (Auto) Baso % (Auto) Gran # Lymph # (Auto) Mckinley # (Auto) Eos # (Auto) Baso # (Auto) Sodium Potassium Chloride Carbon Dioxide Anion Gap BUN Creatinine Est GFR ( Amer) Est GFR (Non-Af Amer) Random Glucose Calcium Phosphorus Magnesium Total Bilirubin AST ALT Alkaline Phosphatase Troponin I < 0.01 Total Protein Albumin Globulin Albumin/Globulin Ratio Hepatitis A IgM Ab Negative Hep Bs Antigen Negative Hep B Core IgM Ab Negative Hepatitis C Antibody Negative HIV 1&2 Ag/Ab, 4th Gen Nonreactive 01/23/18 01/23/18 06:00 06:00 WBC 4.7 RBC 3.44 L Hgb 11.6 L Hct 33.5 L MCV 97.4 MCH 33.7 MCHC 34.6 RDW 12.8 Plt Count 165 MPV 9.8 Gran % 38.9 L Lymph % (Auto) 46.4 H Mckinley % (Auto) 13.7 H Eos % (Auto) 0.6 L Baso % (Auto) 0.4 Gran # 1.84 Lymph # (Auto) 2.2 Mckinley # (Auto) 0.7 H Eos # (Auto) 0.0 Baso # (Auto) 0.02 Sodium 135 Potassium 3.2 L Chloride 102 Carbon Dioxide 21 Anion Gap 16 BUN 11 Creatinine 0.8 Est GFR ( Amer) > 60 Est GFR (Non-Af Amer) > 60 Random Glucose 55 L Calcium 8.8 Phosphorus 4.0 Magnesium 1.9 Total Bilirubin 1.0 AST 84 H D ALT 34 Alkaline Phosphatase 70 Troponin I Total Protein 6.9 Albumin 3.8 Globulin 3.1 Albumin/Globulin Ratio 1.2 Hepatitis A IgM Ab Hep Bs Antigen Hep B Core IgM Ab Hepatitis C Antibody HIV 1&2 Ag/Ab, 4th Gen Attending/Attestation - Attestation I have personally seen and examined this patient.: Yes I have fully participated in the care of the patient.: Yes I have reviewed all pertinent clinical information: Yes Notes (Text): Patient seen and examined by me at 12:35PM with resident 01/22/18. Case including HPI, physical exam, and assessment and plan discussed with resident. Agree with above with following additions/corrections. Patient is a 62-year-old male with past medical history significant for alcohol abuse the presented to the emergency room with witnessed seizure. Please see above HPI for full details. Family history: Mother from "stomach issues." Father also from "stomach issues." Physical exam: General: Awake and lying in bed in acute distress. HEENT: Normocephalic atraumatic. Pupils equal reactive. No scleral icterus. Oropharynx is pink and moist. Neck is supple. Cardiovascular: Normal rhythm. Normal S1 and S2. No murmurs, rubs, or gallops appreciated Pulmonary: Normal respiratory effort. No rhonchi, rales or wheezing appreciated. Gastrointestinal: Soft, nondistended. Nontender. Positive bowel sounds all 4 quadrants, no guarding. Musculoskeletal: Moves all extremities. No calf tenderness. No edema appreciated Central nervous system: Patient awake and confused. Not following all commands. Unable to do full neurological exam. Dermatologic: Skin warm and dry Assessment and plan: Patient is a 62-year-old male with past medical history significant for alcohol abuse the presented to the emergency room with witnessed seizure. 1. New onset siezure. Likely secondary to call alcohol withdrawal. CT head per radiologist shows no acute intracranial hemorrhage, moderate chronic white matter ischemic changes with a few scattered chronic bilateral basal nuclei lacunar type infarcts, moderate generalized volume loss. Will place on ASA and Lipitor. Neurology consulted, pending recommnedations. Place on seizure precautions. Placed on ativan prn for seizure activity. Follow up troponins. Will keep NPO for now. 2. Abdominal pain. Elevated AST. Likely secondary to alcohol abuse. Follow up hepatitis panel. Follow up abdominal ultrasound. 3. ETOH abuse/withdrawal. Alcohol level < 10. Placed on banana bag. Started on thiamine, multivitamin, and folic acid. Placed on CIWA protocol. Ativan prn. Patient counseled at length on alcohol cessation. Continue seizure and aspiration precautions. 4. Tobacco abuse. Chest x-ray per radiologist shows lungs appear hyperinflated which may be secondary to emphysema or COPD, slight cord increased/coarsened interstitial markings both lung bases right greater than left, in addition there is also minor discrete linear atelectasis/scarring changes right lung base, there is a vague elliptical-shaped density which overlies the inferior lateral margin of the right scapula that may represent bony artifact related to his scapula itself or possibly a bony island/osteoma however the possibility of a parenchymal nodule not completely excluded. Patient advised to have outpatient CT done. Patient also advised to follow-up with emergency care tech as an outpatient. Patient counseled at length on tobacco cessation. Placed on nebulizer treatments as needed 5. GI/DVT prophylaxis. Pepcid/heparin
[2018-01-22] MEDS ORDERED: Magnesium Sulfate 2 gm/50 ml 2 GM/50 ML BAG IVPB ONE (10:43)
[2018-01-22] MEDS ORDERED: Albuterol-Ipratrop 3 mg / 0.5 (3 ml) UD IH PRN (11:02)
[2018-01-22 12:31] LABS: HDL CHOLESTEROL 110 mg/dL (29-60)
[2018-01-22 12:42] LABS: LDL CHOLESTEROL 86 mg/dL (0-129)
[2018-01-22 14:00] VITALS: BMI 24.3
[2018-01-22] MEDS ORDERED: Influenza Vaccine 60 mcg/0.5 mL SYR (4YR UP) IM ONE (14:02)
[2018-01-22] MEDS ORDERED: Pneumococcal 23-Valent Vaccine IM ONE (14:02)
[2018-01-22 17:37] LABS: HEPATITIS B SURFACE AG Negative (NEGATIVE)
[2018-01-22 17:42] LABS: HEPATITIS A IGM NEGATIVE (NEGATIVE); HEPATITIS B CORE AB NEGATIVE (NEGATIVE)
[2018-01-22 17:54] LABS: HEPATITIS C ANTIBODY NEGATIVE (NEGATIVE)
--- NOTE | 2018-01-23 06:17 | CP.PCM.PN ---
<Tatyana Root - Last Filed: 01/23/18 19:01> Subjective - Date & Time of Evaluation Date of Evaluation: 01/23/18 Time of Evaluation: 07:10 - Subjective Subjective: PGY-1 Tatyana Root D.O. Medicine progress note for Dr. Heredia's service: Patient was seen and examined this morning. No over night events reported, including seizure activity. Patient did not require Ativan. Patient is alert and oriented x3. He is ambulating without assistance. He denies pain. He reports he drinks 4 cans of beer daily for the past 5 years. He states his brought him into the hospital yesterday for a seizure and this is the first time he has had a seizure. Objective - Vital Signs/Intake and Output Vital Signs (last 24 hours): Temp Pulse Resp BP Pulse Ox 98 F 68 19 150/70 98 01/22/18 13:27 01/23/18 02:00 01/22/18 13:27 01/22/18 13:27 01/22/18 11:56 Intake and Output: 01/22/18 01/23/18 18:59 06:59 Intake Total 600 Balance 600 - Medications Medications: Current Medications Albuterol/Ipratropium (Duoneb 3 Mg/0.5 Mg (3 Ml) Ud) 3 ml IH Q6H PRN PRN Reason: Shortness of Breath Famotidine (Pepcid) 20 mg IVP DAILY [facility] Folic Acid (Folic Acid) 1 mg PO DAILY [facility] Heparin Sodium (Porcine) (Heparin) 5,000 units SC Q12 [facility]; Protocol Last Admin: 01/22/18 23:11 Dose: 5,000 units Lorazepam (Ativan) 1 mg IVP Q4H PRN; Protocol PRN Reason: Seizure activity Last Admin: 01/22/18 14:41 Dose: 1 mg Multivitamins (Thera Tab) 1 tab PO DAILY [facility] Nicotine (Nicoderm Cq) 1 patch TD DAILY [facility] Ondansetron HCl (Zofran Inj) 4 mg IVP Q6H PRN PRN Reason: Nausea/Vomiting Thiamine HCl (Vitamin B1 Tab) 100 mg PO DAILY [facility] - Labs Labs: 01/22/18 07:10 01/22/18 07:10 - Constitutional Appears: Non-toxic, No Acute Distress, Unkempt, Older Than Stated Age - Head Exam Head Exam: ATRAUMATIC, NORMAL INSPECTION - Eye Exam Eye Exam: EOMI, Normal appearance - ENT Exam ENT Exam: Mucous Membranes Moist, Normal Exam - Neck Exam Neck Exam: Normal Inspection - Respiratory Exam Respiratory Exam: Clear to Ausculation Bilateral, NORMAL BREATHING PATTERN. absent: Respiratory Distress - Cardiovascular Exam Cardiovascular Exam: REGULAR RHYTHM, +S1, +S2. absent: Murmur - GI/Abdominal Exam GI & Abdominal Exam: Soft, Normal Bowel Sounds. absent: Tenderness - Rectal Exam Rectal Exam: Deferred - Extremities Exam Extremities Exam: Normal Capillary Refill, Normal Inspection. absent: Pedal Edema, Tenderness - Back Exam Back Exam: NORMAL INSPECTION - Neurological Exam Neurological Exam: Alert, Awake, CN II-XII Intact, Normal Gait, Oriented x3. absent: Motor Sensory Deficit Neuro motor strength exam: Left Upper Extremity: 5, Right Upper Extremity: 5, Left Lower Extremity: 5, Right Lower Extremity: 5 Additional comments: no tremors - Psychiatric Exam Psychiatric exam: Flat Affect - Skin Skin Exam: Dry, Intact, Normal Color, Warm Assessment and Plan - Assessment and Plan (Free Text) Assessment: 62 yo male with PMH EtOH abuse presented s/p witnessed seizure. Patient admitted to remote telemetry for further monitoring. Patient has not had any seizure activity since prior to admission. Plan: Seizure- likely secondary to EtOH abuse - Seizure precautions - CT head: no acute hemorrhage; moderate chronic white matter ischemic changes with few scattered chronic b/l basal nuclei lacunar type infarcts; moderate generalized volume loss - Troponin negative x 3 - HIV negative - CIWA- most recent 4 - Start ASA 81 mg PO daily - Start Lipitor 10 mg PO daily - Ativan 1 mg PO Q4H prn for seizure activity- last required 01/22 2 PM - Neurology consulted (Ivey) Alcohol use disorder - BAL <10 - Banana bag x1 - Multivitamin/folic acid/thiamine - Alcohol cessation counseling Tobacco abuse - CXR: lungs appear hyperinflated which may be secondary to emphysema/COPD. Slight cord increased/coarsened IS markings both lung bases R>L. In addition there is also minor discrete linear atelectasis/scarring changes R lung base. There is vague elliptical shaped density which overlies the inferolateral margin of the R scapula that may represent bony artifact related to trena scapula its elf/bone island/osteoma however the possibility of a parenchymal nodule not completely excluded. Recommend CT chest outpatient - Duoneb 3ml inh q6 prn SOB - Nicotine patch - Smoking cessation counseling Abdominal pain, resolved - Elevated AST likely secondary to EtOH abuse - Hepatitis panel negative - Abdominal u/s: hepatic parenchymal disease or fatty liver - Avoid hepatotoxic drugs IVF: not indicated Diet: heart healthy GI ppx: Pepcid 20mg ivp DVT ppx: SCDs and Heparin 5000u q12 Case discussed with attending, Dr. Heredia. <Sharona Heredia - Last Filed: 01/24/18 15:57> Objective - Vital Signs/Intake and Output Vital Signs (last 24 hours): Temp Pulse Resp BP Pulse Ox 98.3 F 74 19 147/96 H 98 01/24/18 06:00 01/24/18 10:00 01/24/18 06:00 01/24/18 06:00 01/24/18 06:00 - Medications Medications: Current Medications Albuterol/Ipratropium (Duoneb 3 Mg/0.5 Mg (3 Ml) Ud) 3 ml IH Q6H PRN PRN Reason: Shortness of Breath Aspirin (Aspirin Chewable) 81 mg PO DAILY [facility] Last Admin: 01/24/18 09:26 Dose: 81 mg Atorvastatin Calcium (Lipitor) 10 mg PO DIN [facility] Last Admin: 01/23/18 17:27 Dose: 10 mg Famotidine (Pepcid) 20 mg PO DAILY [facility] Last Admin: 01/24/18 09:26 Dose: 20 mg Folic Acid (Folic Acid) 1 mg PO DAILY [facility] Last Admin: 01/24/18 09:26 Dose: 1 mg Heparin Sodium (Porcine) (Heparin) 5,000 units SC Q12 [facility]; Protocol Last Admin: 01/24/18 09:26 Dose: 5,000 units Lorazepam (Ativan) 1 mg IVP Q4H PRN; Protocol PRN Reason: Seizure activity Last Admin: 01/22/18 14:41 Dose: 1 mg Multivitamins (Thera Tab) 1 tab PO DAILY [facility] Last Admin: 01/24/18 09:26 Dose: 1 tab Nicotine (Nicoderm Cq) 1 patch TD DAILY [facility] Last Admin: 01/24/18 09:26 Dose: 1 patch Ondansetron HCl (Zofran Inj) 4 mg IVP Q6H PRN PRN Reason: Nausea/Vomiting Thiamine HCl (Vitamin B1 Tab) 100 mg PO DAILY [facility] Last Admin: 01/24/18 09:26 Dose: 100 mg - Labs Labs: 01/24/18 06:00 01/24/18 06:00 Attending/Attestation - Attestation I have personally seen and examined this patient.: Yes I have fully participated in the care of the patient.: Yes I have reviewed all pertinent clinical information, including history, physical exam and plan: Yes Notes (Text): Patient seen and examined by me at 10:25AM with resident 01/23/18. Case including HPI, physical exam, and assessment and plan discussed with resident. Agree with above with following additions/corrections. Patient is a 62-year-old male with past medical history significant for alcohol abuse the presented to the emergency room with witnessed seizure. Patient states he is feeling better today. He is ambulating. He denies any chest pain or shortness of breath. No headaches or dizziness. No fevers or chills. No lightheadedness. No nausea, vomiting, or abdominal pain. No dysuria. Physical exam: General: Awake and lying in bed in acute distress. HEENT: Normocephalic atraumatic. Pupils equal reactive. No scleral icterus. Oropharynx is pink and moist. Neck is supple. Cardiovascular: Normal rhythm. Normal S1 and S2. No murmurs, rubs, or gallops appreciated Pulmonary: Normal respiratory effort. No rhonchi, rales or wheezing appreciated. Gastrointestinal: Soft, nondistended. Nontender. Positive bowel sounds all 4 quadrants, no guarding. Musculoskeletal: Moves all extremities. No calf tenderness. No edema appreciated Central nervous system: AAO x 3. CN2-12 grossly intact. Dermatologic: Skin warm and dry Assessment and plan: Patient is a 62-year-old male with past medical history significant for alcohol abuse the presented to the emergency room with witnessed seizure. 1. New onset siezure. Likely secondary to call alcohol withdrawal. CT head per radiologist shows no acute intracranial hemorrhage, moderate chronic white matter ischemic changes with a few scattered chronic bilateral basal nuclei lacunar type infarcts, moderate generalized volume loss. Continue ASA and Lipitor. Neurology following, recommendations appreciated. Continue seizure precautions. Continue ativan prn for seizure activity. Troponin within normal limit. Patient counseled at length on alcohol cessation. 2. Abdominal pain. Elevated AST. Likely secondary to alcohol abuse. Hepatitis panel negative. Abdominal ultrasound per radiologist shows echogenic liver may be seen in setting of hepatic parenchymal disease or fatty infiltration. 3. ETOH abuse/withdrawal. Alcohol level < 10. Continue thiamine, multivitamin, and folic acid. Continue CIWA protocol. Continue Ativan prn. Patient counseled at length on alcohol cessation. Continue seizure and aspiration precautions. 4. Tobacco abuse. Chest x-ray per radiologist shows lungs appear hyperinflated which may be secondary to emphysema or COPD, slight cord increased/coarsened interstitial markings both lung bases right greater than left, in addition there is also minor discrete linear atelectasis/scarring changes right lung base, there is a vague elliptical-shaped density which overlies the inferior lateral margin of the right scapula that may represent bony artifact related to his scapula itself or possibly a bony island/osteoma however the possibility of a parenchymal nodule not completely excluded. Patient advised to have outpatient CT done. Patient also advised to follow-up with executive sales manager as an outpatient. Patient counseled at length on tobacco cessation. Continue nebulizer treatments as needed 5. GI/DVT prophylaxis. Pepcid/heparin 6. Patient is a full code Case was discussed in detail with patient regarding current diagnosis and treatment plan.
[2018-01-23 06:43] LABS: BASO # 0.02 K/mm3 (0.0-2.0); BASO % 0.4 % (0.0-3.0); EOS % 0.6 % (1.5-5.0); GRAN # 1.84 (1.4-6.5); GRAN % 38.9 % (50.0-68.0); HEMOGLOBIN 11.6 g/dL (14.0-18.0); LYMPH # 2.2 (1.2-3.4); LYMPH % 46.4 % (22.0-35.0); MEAN CELL VOLUME 97.4 fl (80.0-105.0); MEAN CORPUSCULAR HEMOGLOBIN 33.7 pg (25.0-35.0); MEAN CORPUSCULAR HGB CONC 34.6 g/dl (31.0-37.0); MEAN PLATELET VOLUME 9.8 fl (7.0-11.0); MONO # 0.7 (0.1-0.6); MONO % 13.7 % (1.0-6.0); RBC 3.44 10^6/uL (3.5-6.1); RED CELL DISTRIBUTION WIDTH 12.8 % (11.5-14.5); WHITE BLOOD COUNT 4.7 10^3/ul (4.5-11.0)
[2018-01-23 07:12] LABS: ALB/GLOB RATIO 1.2 (1.1-1.8); ALBUMIN 3.8 g/dL (3.0-4.8); ALT/SGPT 34 U/L (7-56); AST/SGOT 84 U/L (17-59); BLOOD UREA NITROGEN 11 mg/dL (7-21); CALCIUM 8.8 mg/dL (8.4-10.5); GFR NON-AFRICAN AMERICAN > 60
[2018-01-23] MEDS ORDERED: Potassium Chloride 20 mEq ER Tab PO ONE ×2 (09:06→09:07)
--- NOTE | 2018-01-23 09:26 | US ---
HISTORY: abdominal pain - hx of EtOH abuse; elevated AST COMPARISON: None available. TECHNIQUE: Sonographic evaluation of the abdomen. FINDINGS: LIVER: Measures 14.7 cm in sagittal dimension. Echogenic liver may be seen in setting of hepatic parenchymal disease or fatty infiltration. The main portal vein appears patent with normal directional flow. No intrahepatic bile duct dilatation. GALLBLADDER: No gallstones. No gallbladder wall thickening. Negative sonographic Martínez's sign as assessed by the [employer]. COMMON BILE DUCT: Measures 5 mm. PANCREAS: Not well visualized. RIGHT KIDNEY: Measures 10.1 x 4.0 x 5.1cm. No obstructing calculus or hydronephrosis identified. LEFT KIDNEY: Measures 9.4 x 4.2 x 5.0cm. No obstructing calculus or hydronephrosis identified. SPLEEN: Measures approximately 6.8 cm. AORTA: Limited views appear unremarkable. IVC: Limited views appear unremarkable. OTHER FINDINGS: None. IMPRESSION: Echogenic liver may be seen in setting of hepatic parenchymal disease or fatty infiltration. Preliminary impression was provided by [employer].
--- NOTE | 2018-01-23 14:27 | CP.PCM.CON ---
History of Present Illness - History of Present Illness History of Present Illness: Evelia Campo, PGY2, Neurology Consult for Dr Ivey: Reason for consult: seizure, likely alcohol withdrawal 62 year old male PMH EtOH abuse presents s/p witnessed seizure. Patient is a poor historian. Most HPI obtained from chart review, . As per , patient fell to the ground yesterday evening, his entire body and lower jaw were shaking uncontrollably with his eyes rolled back. No bowel/bladder incontinence, biting of his tongue. states that he has had no prior seizure episodes. Patient states that he drinks 2 beers a day for past 15-20 years. However, admits that he drinks much more. unsure as to patient's last drink. No fevers, chills, nausea, vomiting, sob, cp, urinary complaints. Neurology consulted for seizures. 12 point ROS obtained and negative, except as per HPI. PMHx: EtOH abuse PSurgHx: denies Meds: denies ALL: NKDA FamHx: noncontributory SocHx: drinks a lot [unable to quantify]; smokes 1ppd for several years; denies illicit drug use; used to work at the [employer] but retired last year PMD: Dr. Fu- last seen 2 weeks ago Pharmacy: [facility] Review of Systems - Review of Systems All systems: reviewed and no additional remarkable complaints except Review of Systems: as per HPI Past Patient History - Infectious Disease Hx of Infectious Diseases: None - Past Social History Smoking Status: Heavy Smoker > 10 Cigarettes Daily - CARDIAC Hx Cardiac Disorders: No Hx Angina: No Hx Atrial Fibrillation: No Hx Cardia Arrhythmia: No Hx Circulatory Problems: No Hx Congestive Heart Failure: No Hx Heart Attack: No Hx Heart Murmur: No Hx Heart Transplant: No Hx Hypertension: No Hx Hypotension: No Hx Internal Defibrillator: No Hx Mitral Valve Prolapse: No Hx Pacemaker: No Hx Peripheral Edema: No Hx Peripheral Vascular Disease: No - PULMONARY Hx Respiratory Disorders: No Hx Asthma: No Hx Bronchitis: No Hx Chronic Obstructive Pulmonary Disease (COPD): No Hx Emphysema: No Hx Lung Cancer: No Hx Pneumonia: No Hx Pulmonary Edema: No Hx Pulmonary Embolism: No Hx Respiratory Aspiration: No Hx Respiratory Tract Infection: No Hx Sleep Apnea: No Hx Tuberculosis: No - NEUROLOGICAL Hx Neurological Disorder: No Hx Alzheimer's Disease: No HX Cerebrovascular Accident: No Hx Dementia: No Hx Dizziness: No Hx Meningitis: No Hx Migraine: No Hx Multiple Sclerosis: No Hx Paralysis: No Hx Parkinson's Disease: No Hx Seizures: No Hx Syncope: No Hx Transient Ischemic Attacks (TIA): No Hx Vertigo: No - HEENT Hx HEENT Problems: No Hx Blind: No Hx Cataracts: No Hx Deafness: No Hx Difficulty Chewing: No Hx Epistaxis: No Hx Glaucoma: No Hx Macular Degeneration: No Hx Sinusitis: No - RENAL Hx Chronic Kidney Disease: No Hx Dialysis: No Hx Kidney Stones: No Hx Neurogenic Bladder: No Hx Pyelonephritis: No Hx Renal (Kidney) Cancer: No Hx Renal Failure: No - ENDOCRINE/METABOLIC Hx Endocrine Disorders: No Hx Adrenal Cancer: No Hx Diabetes Insipidus: No Hx Diabetes Mellitus Type 1: No Hx Diabetes Mellitus Type 2: No Hx Hyperthyroidism: No Hx Hypothyroidism: No Hx Systemic Lupus Erythematosus: No - HEMATOLOGICAL/ONCOLOGICAL Hx Blood Disorders: No Hx AIDS: No Hx Anemia: No Hx Blood Transfusions: No Hx Blood Transfusion Reaction: No Hx Bruising: No Hx Cancer: No Hx Chemotherapy: No Hx Cirrhosis: No Hx Gum Bleeding: No Hx Hemophilia: No Hx Hepatitis A: No Hx Hepatitis B: No Hx Hepatitis C: No Hx Leukemia: No Hx Metastesis: No Hx Shingles: No Hx Sickle Cell Disease: No Hx Unexplained Bleeding: No Hx von Willebrand's Disease: No - INTEGUMENTARY Hx Dermatological Problems: No Hx Basil Cell: No Hx Blanco: No Hx Cellulitis: No Hx Eczema: No Hx Melanoma: No Hx Psoriasis: No Hx Squamous Cell: No - MUSCULOSKELETAL/RHEUMATOLOGICAL Hx Musculoskeletal Disorders: No Hx Arthritis: No Hx Back Pain: No Hx Degenerative Joint Disease: No Hx Falls: Yes Hx Fractures: No Hx Gout: No Hx Herniated Disk: No Hx Myasthenia Gravis: No Hx Osteoarthritis: No Hx Osteomyelitis: No Hx Osteoporosis: No Hx Rhabdomyolysis: No Hx Rheumatoid Arthritis: No Hx Spinal Stenosis: No Hx Unsteady Gait: Yes - GASTROINTESTINAL Hx Gastrointestinal Disorders: Yes (diarrhea) - GENITOURINARY/GYNECOLOGICAL Hx Genitourinary Disorders: No - PSYCHIATRIC Hx Psychophysiologic Disorder: No Hx Substance Use: No - SURGICAL HISTORY Hx Surgeries: No (denies) - ANESTHESIA Hx Anesthesia: No Meds Allergies/Adverse Reactions: Allergies Allergy/AdvReac Type Severity Reaction Status Date / Time No Known Allergies Allergy Verified 04/23/16 14:20 - Medications Medications: Current Medications Albuterol/Ipratropium (Duoneb 3 Mg/0.5 Mg (3 Ml) Ud) 3 ml IH Q6H PRN PRN Reason: Shortness of Breath Famotidine (Pepcid) 20 mg IVP DAILY [facility] Folic Acid (Folic Acid) 1 mg PO DAILY [facility] Heparin Sodium (Porcine) (Heparin) 5,000 units SC Q12 [facility]; Protocol Last Admin: 01/22/18 23:11 Dose: 5,000 units Lorazepam (Ativan) 1 mg IVP Q4H PRN; Protocol PRN Reason: Seizure activity Last Admin: 01/22/18 14:41 Dose: 1 mg Multivitamins (Thera Tab) 1 tab PO DAILY [facility] Nicotine (Nicoderm Cq) 1 patch TD DAILY [facility] Ondansetron HCl (Zofran Inj) 4 mg IVP Q6H PRN PRN Reason: Nausea/Vomiting Thiamine HCl (Vitamin B1 Tab) 100 mg PO DAILY [facility] Physical Exam - Constitutional Appears: Non-toxic, No Acute Distress - Head Exam Head Exam: ATRAUMATIC, NORMOCEPHALIC - Eye Exam Eye Exam: EOMI, PERRL. absent: Conjunctival injection, Nystagmus, Scleral icterus Pupil Exam: NORMAL ACCOMODATION, PERRL. absent: Fixed, Irregular, Miosis, Unequal - ENT Exam ENT Exam: Mucous Membranes Moist - Neck Exam Neck exam: Positive for: Full Rom - Respiratory Exam Respiratory Exam: Clear to Auscultation Bilateral, NORMAL BREATHING PATTERN. absent: Accessory Muscle Use, Rhonchi, Wheezes, Respiratory Distress - Cardiovascular Exam Cardiovascular Exam: RRR, +S1, +S2. absent: Systolic Murmur - GI/Abdominal Exam GI & Abdominal Exam: Normal Bowel Sounds, Soft. absent: Distended, Firm, Guarding, Hypoactive Bowel Sounds, Mass, Rebound, Tenderness - Extremities Exam Extremities exam: Positive for: normal inspection. Negative for: calf tenderness, pedal edema - Back Exam Back exam: NORMAL INSPECTION - Neurological Exam Neurological exam: Alert, CN II-XII Intact, Normal Gait, Oriented x3, Reflexes Normal - Skin Skin Exam: Dry, Normal Color, Warm Results - Vital Signs Recent Vital Signs: Last Vital Signs Temp 98.6 F 01/23/18 08:39 Pulse 64 01/23/18 08:39 Resp 20 01/23/18 08:39 BP 124/79 01/23/18 08:39 Pulse Ox 100 01/23/18 08:39 - Labs Result Diagrams: 01/23/18 06:00 01/23/18 06:00 Labs: Laboratory Results - last 24 hr 01/22/18 01/22/18 01/22/18 13:30 13:30 19:01 WBC RBC Hgb Hct MCV MCH MCHC RDW Plt Count MPV Gran % Lymph % (Auto) Riley % (Auto) Eos % (Auto) Baso % (Auto) Gran # Lymph # (Auto) Riley # (Auto) Eos # (Auto) Baso # (Auto) Sodium Potassium Chloride Carbon Dioxide Anion Gap BUN Creatinine Est GFR ( Amer) Est GFR (Non-Af Amer) Random Glucose Calcium Phosphorus Magnesium Total Bilirubin AST ALT Alkaline Phosphatase Troponin I < 0.01 Total Protein Albumin Globulin Albumin/Globulin Ratio Hepatitis A IgM Ab Negative Hep Bs Antigen Negative Hep B Core IgM Ab Negative Hepatitis C Antibody Negative HIV 1&2 Ag/Ab, 4th Gen Nonreactive 01/23/18 01/23/18 06:00 06:00 WBC 4.7 RBC 3.44 L Hgb 11.6 L Hct 33.5 L MCV 97.4 MCH 33.7 MCHC 34.6 RDW 12.8 Plt Count 165 MPV 9.8 Gran % 38.9 L Lymph % (Auto) 46.4 H Riley % (Auto) 13.7 H Eos % (Auto) 0.6 L Baso % (Auto) 0.4 Gran # 1.84 Lymph # (Auto) 2.2 Riley # (Auto) 0.7 H Eos # (Auto) 0.0 Baso # (Auto) 0.02 Sodium 135 Potassium 3.2 L Chloride 102 Carbon Dioxide 21 Anion Gap 16 BUN 11 Creatinine 0.8 Est GFR ( Amer) > 60 Est GFR (Non-Af Amer) > 60 Random Glucose 55 L Calcium 8.8 Phosphorus 4.0 Magnesium 1.9 Total Bilirubin 1.0 AST 84 H D ALT 34 Alkaline Phosphatase 70 Troponin I Total Protein 6.9 Albumin 3.8 Globulin 3.1 Albumin/Globulin Ratio 1.2 Hepatitis A IgM Ab Hep Bs Antigen Hep B Core IgM Ab Hepatitis C Antibody HIV 1&2 Ag/Ab, 4th Gen Assessment & Plan - Assessment and Plan (Free Text) Assessment: 62 yo male PMH EtOH abuse, presents to [facility] s/p witnesses seizure, likely alcohol withdrawal: - Abd US showed echogenic liver, hepatic parenchymal disease or fatty inf iltration. - Head CT negative. - Ativan prn - Alcohol level negative on admission - Discussed alcohol rehab program with patient, and family. Discussed with Dr Ivey.
[2018-01-23] MEDS: Multivitamin Therapeutic Tab PO SCH (17:29)
[2018-01-24 06:39] LABS: BASO # 0.01 K/mm3 (0.0-2.0); BASO % 0.2 % (0.0-3.0); EOS # 0.1 (0.0-0.7); EOS % 1.1 % (1.5-5.0); GRAN # 2.29 (1.4-6.5); GRAN % 43.9 % (50.0-68.0); HEMOGLOBIN 12.4 g/dL (14.0-18.0); LYMPH # 2.2 (1.2-3.4); LYMPH % 42.3 % (22.0-35.0); MEAN CELL VOLUME 96.8 fl (80.0-105.0); MEAN CORPUSCULAR HEMOGLOBIN 33.2 pg (25.0-35.0); MEAN CORPUSCULAR HGB CONC 34.3 g/dl (31.0-37.0); MEAN PLATELET VOLUME 10.3 fl (7.0-11.0); MONO # 0.7 (0.1-0.6); MONO % 12.5 % (1.0-6.0); RBC 3.73 10^6/uL (3.5-6.1); RED CELL DISTRIBUTION WIDTH 12.5 % (11.5-14.5); WHITE BLOOD COUNT 5.2 10^3/ul (4.5-11.0)
[2018-01-24 07:14] LABS: BLOOD UREA NITROGEN 10 mg/dL (7-21)
[2018-01-24 07:15] LABS: ALB/GLOB RATIO 1.4 (1.1-1.8); ALBUMIN 4.3 g/dL (3.0-4.8); ALT/SGPT 41 U/L (7-56); AST/SGOT 69 U/L (17-59); CALCIUM 9.5 mg/dL (8.4-10.5); GFR NON-AFRICAN AMERICAN > 60
--- NOTE | 2018-01-24 08:08 | CP.PCM.DIS ---
Provider - Provider Date of Admission: 01/22/18 10:35 Attending physician: Sharona Heredia DO Primary care physician: Dr. Fu Consults: neurology Time Spent in preparation of Discharge (in minutes): 45 Diagnosis - Discharge Diagnosis (1) Seizure Status: Resolved Priority: High (2) Alcohol use disorder Status: Chronic Priority: High Hospital Course - Lab Results Lab Results: Micro Results 01/22/18 08:48 Urine Urine Culture - Final No Growth (<1,000 CFU/ML) Most Recent Lab Values WBC 5.2 10^3/ul (4.5-11.0) 01/24/18 06:00 RBC 3.73 10^6/uL (3.5-6.1) 01/24/18 06:00 Hgb 12.4 g/dL (14.0-18.0) L 01/24/18 06:00 Hct 36.1 % (42.0-52.0) L 01/24/18 06:00 MCV 96.8 fl (80.0-105.0) 01/24/18 06:00 MCH 33.2 pg (25.0-35.0) 01/24/18 06:00 MCHC 34.3 g/dl (31.0-37.0) 01/24/18 06:00 RDW 12.5 % (11.5-14.5) 01/24/18 06:00 Plt Count 202 10^3/uL (120.0-450.0) 01/24/18 06:00 MPV 10.3 fl (7.0-11.0) 01/24/18 06:00 Gran % 43.9 % (50.0-68.0) L 01/24/18 06:00 Lymph % (Auto) 42.3 % (22.0-35.0) H 01/24/18 06:00 [place] % (Auto) 12.5 % (1.0-6.0) H 01/24/18 06:00 Eos % (Auto) 1.1 % (1.5-5.0) L 01/24/18 06:00 Baso % (Auto) 0.2 % (0.0-3.0) 01/24/18 06:00 Gran # 2.29 (1.4-6.5) 01/24/18 06:00 Lymph # (Auto) 2.2 (1.2-3.4) 01/24/18 06:00 [place] # (Auto) 0.7 (0.1-0.6) H 01/24/18 06:00 Eos # (Auto) 0.1 (0.0-0.7) 01/24/18 06:00 Baso # (Auto) 0.01 K/mm3 (0.0-2.0) 01/24/18 06:00 Sodium 135 mmol/L (132-148) 01/24/18 06:00 Potassium 4.6 mmol/L (3.6-5.0) 01/24/18 06:00 Chloride 99 mmol/L (98-107) 01/24/18 06:00 Carbon Dioxide 29 mmol/L (21-33) 01/24/18 06:00 Anion Gap 12 (10-20) 01/24/18 06:00 BUN 10 mg/dL (7-21) 01/24/18 06:00 Creatinine 0.8 mg/dl (0.8-1.5) 01/24/18 06:00 Est GFR ( Amer) > 60 01/24/18 06:00 Est GFR (Non-Af Amer) > 60 01/24/18 06:00 Random Glucose 104 mg/dL (70-110) 01/24/18 06:00 Calcium 9.5 mg/dL (8.4-10.5) 01/24/18 06:00 Phosphorus 3.3 mg/dL (2.5-4.5) 01/24/18 06:00 Magnesium 1.8 mg/dL (1.7-2.2) 01/24/18 06:00 Total Bilirubin 0.9 mg/dL (0.2-1.3) 01/24/18 06:00 AST 69 U/L (17-59) H 01/24/18 06:00 ALT 41 U/L (7-56) 01/24/18 06:00 Alkaline Phosphatase 85 U/L (38-126) 01/24/18 06:00 Lactate Dehydrogenase 529 U/L (333-699) 01/22/18 07:10 Total Creatine Kinase 214 U/L (35-230) 01/22/18 07:10 Troponin I < 0.01 ng/mL 01/22/18 19:01 Total Protein 7.3 g/dL (5.8-8.3) 01/24/18 06:00 Albumin 4.3 g/dL (3.0-4.8) 01/24/18 06:00 Globulin 3.0 gm/dL 01/24/18 06:00 Albumin/Globulin Ratio 1.4 (1.1-1.8) 01/24/18 06:00 Triglycerides 81 mg/dL (35-160) 01/22/18 07:10 Cholesterol 218 mg/dL (130-200) H 01/22/18 07:10 LDL Cholesterol Direct 86 mg/dL (0-129) 01/22/18 07:10 HDL Cholesterol 110 mg/dL (29-60) H 01/22/18 07:10 Urine Color Yellow (YELLOW) 01/22/18 09:12 Urine Appearance Clear (CLEAR) 01/22/18 09:12 Urine pH 6.0 (4.7-8.0) 01/22/18 09:12 Ur Specific [place] >= 1.030 (1.005-1.035) 01/22/18 09:12 Urine Protein 100 mg/dL (<30 mg/dL) H 01/22/18 09:12 Urine Glucose (UA) Negative mg/dL (NEGATIVE) 01/22/18 09:12 Urine Ketones 15 mg/dL (NEGATIVE) H 01/22/18 09:12 Urine Blood Trace-lysed (NEGATIVE) H 01/22/18 09:12 Urine Nitrate Negative (NEGATIVE) 01/22/18 09:12 Urine Bilirubin Negative (NEGATIVE) 01/22/18 09:12 Urine Urobilinogen 0.2 E.U./dL (<1 E.U./dL) 01/22/18 09:12 Ur Leukocyte Esterase Negative Abbie/uL (NEGATIVE) 01/22/18 09:12 Urine RBC 2 - 5 /hpf (0-2) 01/22/18 09:12 Urine WBC 0 - 2 /hpf (0-6) 01/22/18 09:12 Ur Epithelial Cells 0 - 2 /hpf (0-5) 01/22/18 09:12 Amorphous Sediment Few 01/22/18 09:12 Urine Bacteria Many (NEG) 01/22/18 09:12 Coarse Granular Casts Trace /hpf (0-2) H 01/22/18 09:12 Urine Opiates Screen Negative (NEGATIVE) 01/22/18 09:12 Urine Methadone Screen Negative (NEGATIVE) 01/22/18 09:12 Ur Barbiturates Screen Negative (NEGATIVE) 01/22/18 09:12 Ur Phencyclidine Scrn Negative (NEGATIVE) 01/22/18 09:12 Ur Amphetamines Screen Negative (NEGATIVE) 01/22/18 09:12 U Benzodiazepines Scrn Negative (NEGATIVE) 01/22/18 09:12 U Oth Cocaine Metabols Negative (NEGATIVE) 01/22/18 09:12 U Cannabinoids Screen Negative (NEGATIVE) 01/22/18 09:12 Alcohol, Quantitative < 10 mg/dL (0-10) 01/22/18 07:10 Hepatitis A IgM Ab Negative (NEGATIVE) 01/22/18 13:30 Hep Bs Antigen Negative (NEGATIVE) 01/22/18 13:30 Hep B Core IgM Ab Negative (NEGATIVE) 01/22/18 13:30 Hepatitis C Antibody Negative (NEGATIVE) 01/22/18 13:30 HIV 1&2 Ag/Ab, 4th Gen Nonreactive (Nonreactive) 01/22/18 13:30 - Hospital Course Hospital Course: 62yo male PMHx EtOH abuse presents s/p witnessed seizure this AM. Patient's noted that he fell to the ground and his entire body and lower jaw were shaking uncontrollably with his eyes rolled back. Patient did not have any loss of bladder/bowel continence and no biting of the tongue or frothing at the mouth. Patient's reports this was the first time he has had such an episode. She reported he fell to the ground but was unsure if he hit his head. Patient was unsure of when his last drink was and unsure of how much he drinks. Recently he has not complained of any acute fever/chills, chest pain, SOB, nausea, vomiting, bowel/bladder complaints, pain/swelling in his legs. Patient has complained of abdominal pain for the past 3 weeks and saw his PMD Dr. Fu 2 weeks ago and was supposed to have an abdominal u/s done but never followed up. Patient's also disclosed he may have some high cholesterol but was unsure of this and does not take any medications. No recent travel/sick contacts. On initial exam, patient was confused and not following commands. Patient resolv ed by the next day and was alert and orientedx3 and following commands. CT head showed no acute intracranial hemorrhage, moderate chronic white matter ischemic changes with a few scattered chronic bilateral basal nuclei lacunar type infarcts, and moderate generalized volume loss. Chest x-ray showed hyperinflated lung bases right greater than left as well as minor discrete linear atelectasis/scarring changes right longue base. Initial labs revealed an elevated AST likely secondary to alcohol abuse. Troponins were negative x3. Abdominal ultrasound was performed and showed hepatic parenchymal disease vs fatty liver. Hepatitis panel was negative. Patient was placed on ASA and Lipitor for strokes seen on CT. Patient was placed on seizure precautions. He was placed on ativan as needed for seizure activity. His last required dose of ativan was 01/22/18 at 2pm, which was upon admission in the ED. Patient was given a banana bag and then started on oral thiamine, multivitamin, and folic acid. Patient was counseled on alcohol and smoking cessation. Upon discharge, patient was doing well. He was alert and oriented, ambulating, and denied symptoms. No seizure activity was observed throughout the entirety of his hospitalization. Patient did not require PRN Ativan for >24 hours, and he was scoring low on CIWA. Patient was ambulating without difficultly. Vitals were stable. Pt was encouraged to quit smoking and alcohol use. Discharge Exam - Head Exam Head Exam: ATRAUMATIC, NORMAL INSPECTION - Eye Exam Eye Exam: EOMI, Normal appearance - ENT Exam ENT Exam: Mucous Membranes Moist - Neck Exam Neck exam: Full Rom, Normal Inspection - Respiratory Exam Respiratory Exam: Clear to PA & Lateral, NORMAL BREATHING PATTERN, UNREMARKABLE - Cardiovascular Exam Cardiovascular Exam: REGULAR RHYTHM, +S1, +S2 - GI/Abdominal Exam GI & Abdominal Exam: Normal Bowel Sounds, Soft, Unremarkable - Rectal Exam Rectal Exam: Deferred - Extremities Exam Extremities exam: normal inspection - Back Exam Back exam: NORMAL INSPECTION - Neurological Exam Neurological exam: Alert, CN II-XII Intact, Normal Gait, Oriented x3, Reflexes Normal - Psychiatric Exam Psychiatric exam: Normal Affect, Normal Mood - Skin Skin Exam: Dry, Intact, Normal Color, Warm Discharge Plan - Discharge Medications Prescriptions: Aspirin [Aspirin Chewable] 81 mg PO DAILY #14 chew Atorvastatin [Lipitor] 10 mg PO DIN #14 tab Folic Acid 1 mg PO DAILY #14 tab Multivitamin Therapeutic Tab [Thera Tab] 1 tab PO DAILY #14 tab Nicotine 21 mg/24 hr [Nicoderm Cq] 1 patch TD DAILY #14 patch Thiamine HCl [Vitamin B-1] 100 mg PO DAILY #14 tablet - Follow Up Plan Condition: STABLE Disposition: HOME/ ROUTINE Patient education suggested?: Yes Instructions: Alcohol Use - When Is Drinking a Problem?, Seizures, Adult (DC) Additional Instructions: You are being discharged from [facility] after being treated for a seizure. Please follow-up with your primary care provider, Dr. Fu, within 3-5 days of discharge. Please get any refills of medications from Dr. Fu. You will be given a prescription for aspirin and Lipitor for history of stroke. You are strongly advised to stop drinking alcohol and smoking cigarettes. If symptoms return, please present to the nearest emergency room. Referrals: Ziggy Fu MD [Non-Staff] -
[2018-01-24] MEDS: Multivitamin Therapeutic Tab PO SCH (09:26)
[2018-01-24 10:15] VITALS: BP 147/96; RESP 19; TEMP 98.3; O2SAT 98
[2018-01-24 10:30] VITALS: PULSE 74
== END 2018-01-24 16:28 | disposition home or self-care (01) | DRG 897 ==
LOC: ED 06:34 → ERH 10:35 → 3RNO 13:04
PROVIDERS: ADMIT Hospitalist; ATTEND Hospitalist
DX: F10.239 Alcohol dependence with withdrawal, unspecified (principal); R56.9 Unspecified convulsions; Y90.0 Blood alcohol level of less than 20 mg/100 ml; F17.210 Nicotine dependence, cigarettes, uncomplicated; Z91.81 History of falling

== ENCOUNTER 2018-04-02 03:03 | Observation (INO) | payer MEDICAID, OTHER ==
--- NOTE | 2018-04-02 03:21 | ED PDOC ---
Arrival/HPI - General Time Seen by Provider: 04/02/18 03:06 Historian: Patient, EMS - History of Present Illness Narrative History of Present Illness (Text): 04/02/18 03:20 Julieta Cage is a 62 year old male, whose past medical history includes alcohol abuse and alcohol withdrawal seizures, who presents to the Emergency department by EMS status post seizure. As per EMS, patient had a seizure while at home prior to arrival, witnessed by his . Patient states he is unable to recall the event but denies any recent alcohol consumption. Patient denies any tongue/lip biting, urinary incontinence, fever, chills, chest pain, shortness of breath, nausea, vomiting, neck pain, headache, dizziness, or any other complaints. Symptom Onset: Gradual Symptom Course: Unchanged Activities at Onset: Light Context: Home Past Medical History - Provider Review Nursing Documentation Reviewed: Yes - Infectious Disease Hx of Infectious Diseases: None - Past Medical History Past Medical History: No Previous (No chronic diseases) - Cardiac Hx Cardiac Disorders: No Hx Angina: No Hx Atrial Fibrillation: No Hx Cardiac Arrhythmia: No Hx Circulatory Problems: No Hx Congestive Heart Failure: No Hx IL: No Hx Heart Murmur: No Hx Heart Transplant: No Hx Hypertension: No Hx Hypotension: No Hx Internal Defibrillator: No Hx Mitral Valve Prolapse: No Hx Pacemaker: No Hx Peripheral Edema: No Hx Peripheral Vascular Disease: No - Pulmonary Hx Respiratory Disorders: No Hx Asthma: No Hx Bronchitis: No Hx Chronic Obstructive Pulmonary Disease (COPD): No Hx Emphysema: No Hx Lung Cancer: No Hx Pneumonia: No Hx Pulmonary Edema: No Hx Pulmonary Embolism: No Hx Respiratory Aspiration: No Hx Respiratory Tract Infection: No Hx Sleep Apnea: No Hx Tuberculosis: No - Neurological Hx Neurological Disorder: No Hx Alzheimer's Disease: No HX Cerebrovascular Accident: No Hx Dementia: No Hx Dizziness: No Hx Meningitis: No Hx Migraine: No Hx Multiple Sclerosis: No Hx Paralysis: No Hx Parkinson's Disease: No Hx Seizures: No Hx Syncope: No Hx Transient Ischemic Attacks (TIA): No Hx Vertigo: No - HEENT Hx HEENT Disorder: No Hx Blind: No Hx Cataracts: No Hx Deafness: No Hx Difficulty Chewing: No Hx Epistaxis: No Hx Glaucoma: No Hx Macular Degeneration: No - Renal Hx Renal Disorder: No Hx Dialysis: No Hx Kidney Stones: No Hx Neurogenic Bladder: No Hx Pyelonephritis: No Hx Renal Cancer: No Hx Renal Failure: No - Endocrine/Metabolic Hx Endocrine Disorders: No Hx Adrenal Cancer: No Hx Diabetes Insipidus: No Hx Diabetes Mellitus Type 1: No Hx Diabetes Mellitus Type 2: No Hx Hyperthyroidism: No Hx Hypothyroidism: No Hx Systemic Lupus Erythematosus: No - Hematological/Oncological Hx Blood Disorders: No Hx AIDS: No Hx Anemia: No Hx Blood Transfusions: No Hx Blood Transfusion Reaction: No Hx Bruising: No Hx Cancer: No Hx Chemotherapy: No Hx Cirrhosis: No Hx Gum Bleeding: No Hx Hemophilia: No Hx Hepatitis A: No Hx Hepatitis B: No Hx Hepatitis C: No Hx Leukemia: No Hx Metastasis: No Hx Shingles: No Hx Sickle Cell Disease: No Hx Unexplained Bleeding: No Hx von Willebrand's Disease: No - Integumentary Hx Dermatological Disorder: No Hx Basal Cell Carcinoma: No Hx Blanco: No Hx Cellulitis: No Hx Eczema: No Hx Melanoma: No Hx Psoriasis: No Hx Squamous Cell Carcinoma: No - Musculoskeletal/Rheumatological Hx Musculoskeletal Disorders: No Hx Arthritis: No Hx Back Pain: No Hx Degenerative Joint Disease: No Hx Falls: Yes Hx Fractures: No Hx Gout: No Hx Herniated Disk: No Hx Myasthenia Gravis: No Hx Osteoarthritis: No Hx Osteomyelitis: No Hx Osteoporosis: No Hx Rhabdomyolysis: No Hx Rheumatoid Arthritis: No Hx Spinal Stenosis: No Hx Unsteady Gait: Yes - Gastrointestinal Hx Gastrointestinal Disorders: Yes (diarrhea) - Genitourinary/Gynecological Hx Genitourinary Disorders: No - Psychiatric Hx Psychophysiologic Disorder: No Hx Substance Use: No - Past Surgical History Past Surgical History: No Previous - Anesthesia Hx Anesthesia: No - Suicidal Assessment Feels Threatened In Home Enviroment: No Family/Social History - Physician Review Nursing Documentation Reviewed: Yes Family/Social History: Unknown Family HX Smoking Status: Heavy Smoker > 10 Cigarettes Daily Hx Alcohol Use: Yes Hx Substance Use: No Allergies/Home Meds Allergies/Adverse Reactions: Allergies No Known Allergies Allergy (Verified 04/02/18 03:19) Review of Systems - Physician Review All systems were reviewed & negative as marked: Yes - Review of Systems Constitutional: Normal. absent: Fevers Eyes: Normal ENT: Normal Respiratory: Normal. absent: SOB, Cough Cardiovascular: Normal. absent: Chest Pain Gastrointestinal: Normal. absent: Abdominal Pain, Diarrhea, Nausea, Vomiting Genitourinary Male: Normal. absent: Dysuria, Frequency, Hematuria, Urinary Output Changes Musculoskeletal: Normal. absent: Back Pain, Neck Pain Skin: Normal. absent: Rash Neurological: Seizure. absent: Dizziness Endocrine: Normal Hemo/Lymphatic: Normal Psychiatric: Normal Physical Exam Vital Signs Reviewed: Yes Vital Signs Temp Pulse Resp BP Pulse Ox 04/02/18 03:11 98.2 F 93 H 18 122/98 H 100 Temperature: Afebrile Blood Pressure: Normal Pulse: Regular Respiratory Rate: Normal Appearance: Positive for: Well-Appearing, Non-Toxic, Comfortable Pain Distress: None Mental Status: Positive for: other (Drowsy but arousable) - Systems Exam Head: Present: Atraumatic, Normocephalic Pupils: Present: PERRL Extroacular Muscles: Present: EOMI Conjunctiva: Present: Normal Mouth: Present: Moist Mucous Membranes Neck: Present: Normal Range of Motion Respiratory/Chest: Present: Clear to Auscultation, Good Air Exchange. No: Respiratory Distress, Accessory Muscle Use Cardiovascular: Present: Regular Rate and Rhythm, Normal S1, S2. No: Murmurs Abdomen: No: Tenderness, Distention, Peritoneal Signs Back: Present: Normal Inspection Upper Extremity: Present: Normal Inspection. No: Cyanosis, Edema Lower Extremity: Present: Normal Inspection. No: Edema Neurological: Present: GCS=15, CN II-XII Intact, Speech Normal Skin: Present: Warm, Dry, Normal Color. No: Rashes Psychiatric: Present: Alert, Oriented x 3, Normal Insight, Normal Concentration Medical Decision Making ED Course and Treatment: 04/02/18 03:20 Impression: 62 year old male brought in status post seizure. Plan: -- CT Head w/o contrast -- EKG -- Chest X-ray -- Labs, cardiac enzymes, alcohol level -- Reassess and disposition Prior Visits: Notes and results from previous visits were reviewed. Progress Notes: Reviewed EKG, NSR at [address] LAD. Non-specific ST/T wave changes. 04/02/18 04:20 Reviewed radiology, Chest X-ray shows no acute processes. CT Head shows: There is normal configuration of sella turcica. There are no intra or extra- axial collections. There is no mass effect or midline shift. There is no evidence of hematoma formation. No hydrocephalus is present. The ventricles are symmetrical. No abnormal calcifications are present. There is diffuse age-appropriate cerebellar and cerebral atrophy with proportionally dilated ventricles and cortical sulci. There are bilateral periventricular and subcortical white matter hypolucencies compatible with mild chronic microvascular disease. Otherwise, no significant focal abnormalities are seen either in the posterior fossa or supratentorial compartment. IMPRESSION: 1. Age-appropriate cerebellar and cerebral atrophy. 2. Mild chronic microvascular disease. 3. No evidence of acute intracranial pathology. Electronically signed on Apr 02, 2018 4:11:38 AM EST by: Ted Mckinley M.D., Certified by ABR, MSK, Neuroradiology 04/02/18 04:38 Case discussed with medical writer battery container inspector, who is aware and agrees with plan. 04/02/18 04:[address] Cortez, who is aware and agrees with plan. Accepts pt in to the hospitalist service. Pt will go to Telemetry observation for alcohol withdrawal seizures. - Lab Interpretations I have reviewed the lab results: Yes - RAD Interpretation Radiology Orders: 04/02/18 03:10 HEAD W/O CONTRAST [CT] Stat 04/02/18 03:11 CHEST ONE VIEW [RAD] Stat Wire Rope Sales Representative: ED Physician, Radiologist - EKG Interpretation Interpreted by ED Physician: Yes Type: 12 lead EKG - Scribe Statement The provider has reviewed the documentation as recorded by the Deysi Riley Provider Scribe Attestation: All medical record entries made by the Scribe were at my direction and personally dictated by me. I have reviewed the chart and agree that the record accurately reflects my personal performance of the history, physical exam, medical decision making, and the department course for this patient. I have also personally directed, reviewed, and agree with the discharge instructions and disposition. Disposition/Present on Arrival - Present on Arrival Any Indicators Present on Arrival: No History of DVT/PE: No History of Uncontrolled Diabetes: No Urinary Catheter: No History Surgical Site Infection Following: None - Disposition Have Diagnosis and Disposition been Completed?: Yes Diagnosis: Alcohol withdrawal seizure Disposition: HOSPITALIZED Disposition Time: 04:53 Patient Problems: Current Active Problems Problem Status Onset Alcohol withdrawal seizure Acute Condition: STABLE
[2018-04-02 03:30] LABS: HEMOGLOBIN 12.9 g/dL (14.0-18.0); MEAN CELL VOLUME 100.3 fl (80.0-105.0); MEAN CORPUSCULAR HEMOGLOBIN 33.3 pg (25.0-35.0); MEAN CORPUSCULAR HGB CONC 33.2 g/dl (31.0-37.0); MEAN PLATELET VOLUME 9.2 fl (7.0-11.0); RBC 3.87 10^6/uL (3.5-6.1); RED CELL DISTRIBUTION WIDTH 12.6 % (11.5-14.5); WHITE BLOOD COUNT 7.9 10^3/uL (4.5-11.0)
[2018-04-02 03:34] LABS: ALB/GLOB RATIO 1.2 (1.1-1.8); ALBUMIN 4.5 g/dL (3.0-4.8); ALT/SGPT 11 U/L (7-56); AST/SGOT 51 U/L (17-59); BLOOD UREA NITROGEN 7 mg/dL (7-21); CALCIUM 9.4 mg/dL (8.4-10.5); GFR NON-AFRICAN AMERICAN > 60
[2018-04-02 03:45] LABS: TROPONIN I < 0.01 ng/mL
--- NOTE | 2018-04-02 05:27 | CP.PCM.HP ---
<Julio César Burns - Last Filed: 04/02/18 05:18> History of Present Illness - History of Present Illness History of Present Illness: Julio César Burns, PGY1 H&P for Hospitalist Service This is a 62 year old male with PMH of alcohol abuse with alcohol seizures and withdrawal presenting to the ED via EMS for seizure. Per EMS, patient's witnessed seizure while patient was on bed earlier in the evening. is not present during evaluation and patient is confused limiting history. Patient nery es recollection of seizure event as well as events prior to and post seizure. He states his last alcohol drink was one week ago. He currently denies CP, SOB, fevers, headaches, nausea, vomiting, chills, tongue biting, tongue fasciculations, abdominal pain, back pain, urinary/stool incontinence, urinary complaints, numbness, tingling, swelling, recent travel, sickness, trauma and lifestyle changes. 12 point ROS noted here, otherwise unremarkable. PMD: denies, per chart review PMD is Dr. Fu PMH: alcohol abuse with alcohol seizures and withdrawal SH: drinks 2 beers per day for the last 20 years, smokes 1/2 ppd for the last 30 years, denies drug use Sx: denies FH: NC All: denies Meds: denies Present on Admission - Present on Admission Any Indicators Present on Admission: No Past Patient History - Infectious Disease Hx of Infectious Diseases: None - Past Social History Smoking Status: Heavy Smoker > 10 Cigarettes Daily - CARDIAC Hx Cardiac Disorders: No Hx Angina: No Hx Atrial Fibrillation: No Hx Cardia Arrhythmia: No Hx Circulatory Problems: No Hx Congestive Heart Failure: No Hx Heart Attack: No Hx Heart Murmur: No Hx Heart Transplant: No Hx Hypertension: No Hx Hypotension: No Hx Internal Defibrillator: No Hx Mitral Valve Prolapse: No Hx Pacemaker: No Hx Peripheral Edema: No Hx Peripheral Vascular Disease: No - PULMONARY Hx Respiratory Disorders: No Hx Asthma: No Hx Bronchitis: No Hx Chronic Obstructive Pulmonary Disease (COPD): No Hx Emphysema: No Hx Lung Cancer: No Hx Pneumonia: No Hx Pulmonary Edema: No Hx Pulmonary Embolism: No Hx Respiratory Aspiration: No Hx Respiratory Tract Infection: No Hx Sleep Apnea: No Hx Tuberculosis: No - NEUROLOGICAL Hx Neurological Disorder: No Hx Alzheimer's Disease: No HX Cerebrovascular Accident: No Hx Dementia: No Hx Dizziness: No Hx Meningitis: No Hx Migraine: No Hx Multiple Sclerosis: No Hx Paralysis: No Hx Parkinson's Disease: No Hx Seizures: No Hx Syncope: No Hx Transient Ischemic Attacks (TIA): No Hx Vertigo: No - HEENT Hx HEENT Problems: No Hx Blind: No Hx Cataracts: No Hx Deafness: No Hx Difficulty Chewing: No Hx Epistaxis: No Hx Glaucoma: No Hx Macular Degeneration: No - RENAL Hx Chronic Kidney Disease: No Hx Dialysis: No Hx Kidney Stones: No Hx Neurogenic Bladder: No Hx Pyelonephritis: No Hx Renal (Kidney) Cancer: No Hx Renal Failure: No - ENDOCRINE/METABOLIC Hx Endocrine Disorders: No Hx Adrenal Cancer: No Hx Diabetes Insipidus: No Hx Diabetes Mellitus Type 1: No Hx Diabetes Mellitus Type 2: No Hx Hyperthyroidism: No Hx Hypothyroidism: No Hx Systemic Lupus Erythematosus: No - HEMATOLOGICAL/ONCOLOGICAL Hx Blood Disorders: No Hx AIDS: No Hx Anemia: No Hx Blood Transfusions: No Hx Blood Transfusion Reaction: No Hx Bruising: No Hx Cancer: No Hx Chemotherapy: No Hx Cirrhosis: No Hx Gum Bleeding: No Hx Hemophilia: No Hx Hepatitis A: No Hx Hepatitis B: No Hx Hepatitis C: No Hx Leukemia: No Hx Metastesis: No Hx Shingles: No Hx Sickle Cell Disease: No Hx Unexplained Bleeding: No Hx von Willebrand's Disease: No - INTEGUMENTARY Hx Dermatological Problems: No Hx Basil Cell: No Hx Blanco: No Hx Cellulitis: No Hx Eczema: No Hx Melanoma: No Hx Psoriasis: No Hx Squamous Cell: No - MUSCULOSKELETAL/RHEUMATOLOGICAL Hx Musculoskeletal Disorders: No Hx Arthritis: No Hx Back Pain: No Hx Degenerative Joint Disease: No Hx Falls: Yes Hx Fractures: No Hx Gout: No Hx Herniated Disk: No Hx Myasthenia Gravis: No Hx Osteoarthritis: No Hx Osteomyelitis: No Hx Osteoporosis: No Hx Rhabdomyolysis: No Hx Rheumatoid Arthritis: No Hx Spinal Stenosis: No Hx Unsteady Gait: Yes - GASTROINTESTINAL Hx Gastrointestinal Disorders: Yes (diarrhea) - GENITOURINARY/GYNECOLOGICAL Hx Genitourinary Disorders: No - PSYCHIATRIC Hx Psychophysiologic Disorder: No Hx Substance Use: No - SURGICAL HISTORY Hx Surgeries: No (denies) - ANESTHESIA Hx Anesthesia: No Meds Allergies/Adverse Reactions: Allergies Allergy/AdvReac Type Severity Reaction Status Date / Time No Known Allergies Allergy Verified 04/02/18 03:19 Physical Exam - Constitutional Appears: No Acute Distress, Unkempt Additional comments: confused - Head Exam Head Exam: ATRAUMATIC, NORMAL INSPECTION - Eye Exam Eye Exam: EOMI Pupil Exam: PERRL - ENT Exam ENT Exam: Mucous Membranes Moist Additional comments: no tongue fasciculations - Respiratory Exam Respiratory Exam: Clear to Auscultation Bilateral, NORMAL BREATHING PATTERN. absent: Accessory Muscle Use, Wheezes, Respiratory Distress - Cardiovascular Exam Cardiovascular Exam: REGULAR RHYTHM, +S1, +S2 - GI/Abdominal Exam GI & Abdominal Exam: Normal Bowel Sounds, Soft. absent: Firm, Guarding, Tenderness - Extremities Exam Extremities exam: Positive for: normal inspection, pedal pulses present. Negative for: calf tenderness - Neurological Exam Neurological exam: Alert Additional comments: Oriented to person and place, not time or personal age. - Skin Skin Exam: Normal Color, Warm Results - Vital Signs Recent Vital Signs: Last Vital Signs Temp 98.2 F 04/02/18 03:11 Pulse 93 H 04/02/18 03:11 Resp 18 04/02/18 03:11 BP 122/98 H 04/02/18 03:11 Pulse Ox 100 04/02/18 03:11 - Labs Result Diagrams: 04/02/18 03:17 04/02/18 03:17 Labs: Laboratory Results - last 24 hr 04/02/18 04/02/18 04/02/18 03:17 03:17 03:17 WBC 7.9 RBC 3.87 Hgb 12.9 L Hct 38.8 L MCV 100.3 D MCH 33.3 MCHC 33.2 RDW 12.6 Plt Count 297 MPV 9.2 Sodium 137 Potassium 3.9 Chloride 105 Carbon Dioxide 11 L Anion Gap 26 H BUN 7 Creatinine 1.0 Est GFR ( Amer) > 60 Est GFR (Non-Af Amer) > 60 Random Glucose 155 H Calcium 9.4 Total Bilirubin 0.4 AST 51 ALT 11 Alkaline Phosphatase 92 Lactate Dehydrogenase 462 Total Creatine Kinase 183 Troponin I < 0.01 Total Protein 8.2 Albumin 4.5 Globulin 3.7 Albumin/Globulin Ratio 1.2 Alcohol, Quantitative 10 Assessment & Plan - Assessment and Plan (Free Text) Assessment: This is a 62 year old male with PMH of alcohol abuse with alcohol seizures and withdrawal presenting to the ED via EMS for unprovoked seizure. Plan: Unprovoked seizure: -dwain 2/2 alf alcohol abuse -CT head pending -ativan prn 2mg q4h -alcohol level WNL -UDS pending -troponin WNL -swallow eval, NPO for now -neurology on consult, Dr. Ivey Hx of alcohol abuse: -CIWA -banana bag -seizure, aspiration, fall precautions -ativan prn Hx of Tobacco abuse -nicotine patch -smoking cessation PPX with protonix and SCD Patient seen and case discussed with attending, Dr. Cortez <Sukumar Cortez - Last Filed: 04/02/18 06:16> Results - Vital Signs Recent Vital Signs: Last Vital Signs Temp 98.2 F 04/02/18 03:11 Pulse 64 04/02/18 05:48 Resp 18 04/02/18 05:48 BP 154/92 H 04/02/18 05:48 Pulse Ox 93 L 04/02/18 05:48 - Labs Result Diagrams: 04/02/18 03:17 04/02/18 03:17 Labs: Laboratory Results - last 24 hr 04/02/18 04/02/18 04/02/18 03:17 03:17 03:17 WBC 7.9 RBC 3.87 Hgb 12.9 L Hct 38.8 L MCV 100.3 D MCH 33.3 MCHC 33.2 RDW 12.6 Plt Count 297 MPV 9.2 Sodium 137 Potassium 3.9 Chloride 105 Carbon Dioxide 11 L Anion Gap 26 H BUN 7 Creatinine 1.0 Est GFR ( Amer) > 60 Est GFR (Non-Af Amer) > 60 Random Glucose 155 H Calcium 9.4 Total Bilirubin 0.4 AST 51 ALT 11 Alkaline Phosphatase 92 Lactate Dehydrogenase 462 Total Creatine Kinase 183 Troponin I < 0.01 Total Protein 8.2 Albumin 4.5 Globulin 3.7 Albumin/Globulin Ratio 1.2 Alcohol, Quantitative 10 Attending/Attestation - Attestation I have personally seen and examined this patient.: Yes I have fully participated in the care of the patient.: Yes I have reviewed all pertinent clinical information: Yes
[2018-04-02] MEDS ORDERED: Folic Acid 1 MG, Thiamine 100 MG, Multivitamin (MVI) 10 ML in Dextrose 5% In Water 1,00... IV SCH (05:45)
[2018-04-02] MEDS: Pantoprazole 40 mg EC Tab PO SCH (06:18)
--- NOTE | 2018-04-02 09:32 | CP.PCM.CON ---
<Emilio Kumar - Last Filed: 04/02/18 14:19> History of Present Illness - History of Present Illness History of Present Illness: Neurology Consult Note for Dr. Barrera Reason for Consultation: Seizure HPI: Patient is a 62 yo M with PMH of EtOH abuse with withdrawal and seizures [place] [facility] [place] witnessed seizure by his . Patient states that he was getting ready for bed last night and the next the he remembered was waking up in the hospital. Patient's states that she noted seizure like activity and brought him to the hospital. Patient denied tongue biting, bowel, or bladder incontinence. Patient states that he was admitted in December for seizure 2/2 alcohol withdrawal as well. Patient was counselled at the time for alcohol abuse, but he admits to continuing EtOH use. Patient states that his last drink was yesterday around lunch and that he typically drinks a couple of beers daily for the last 20 years. Patient denied CP, SOB, fevers, headaches, nausea, vomiting, chills, abdominal pain, back pain, urinary complaints, numbness, tingling, swelling, recent travel, sickness, trauma and lifestyle changes. PMH: Alcohol abuse with alcohol seizures and withdrawal Surg: Denied All: NKDA SH: drinks at least 3 beers per day for the last 40 years, smokes 1/2 ppd for th e last 30 years, denies drug use FH: Non-contributory Review of Systems - Review of Systems All systems: reviewed and no additional remarkable complaints except (12 point ROS reviewed and is negative other than what is stated in HPI.) Past Patient History - Infectious Disease Hx of Infectious Diseases: None - Past Social History Smoking Status: Heavy Smoker > 10 Cigarettes Daily - CARDIAC Hx Cardiac Disorders: No Hx Angina: No Hx Atrial Fibrillation: No Hx Cardia Arrhythmia: No Hx Circulatory Problems: No Hx Congestive Heart Failure: No Hx Heart Attack: No Hx Heart Murmur: No Hx Heart Transplant: No Hx Hypertension: No Hx Hypotension: No Hx Internal Defibrillator: No Hx Mitral Valve Prolapse: No Hx Pacemaker: No Hx Peripheral Edema: No Hx Peripheral Vascular Disease: No - PULMONARY Hx Respiratory Disorders: No Hx Asthma: No Hx Bronchitis: No Hx Chronic Obstructive Pulmonary Disease (COPD): No Hx Emphysema: No Hx Lung Cancer: No Hx Pneumonia: No Hx Pulmonary Edema: No Hx Pulmonary Embolism: No Hx Respiratory Aspiration: No Hx Respiratory Tract Infection: No Hx Sleep Apnea: No Hx Tuberculosis: No - NEUROLOGICAL Hx Neurological Disorder: No Hx Alzheimer's Disease: No HX Cerebrovascular Accident: No Hx Dementia: No Hx Dizziness: No Hx Meningitis: No Hx Migraine: No Hx Multiple Sclerosis: No Hx Paralysis: No Hx Parkinson's Disease: No Hx Seizures: No Hx Syncope: No Hx Transient Ischemic Attacks (TIA): No Hx Vertigo: No - HEENT Hx HEENT Problems: No Hx Blind: No Hx Cataracts: No Hx Deafness: No Hx Difficulty Chewing: No Hx Epistaxis: No Hx Glaucoma: No Hx Macular Degeneration: No - RENAL Hx Chronic Kidney Disease: No Hx Dialysis: No Hx Kidney Stones: No Hx Neurogenic Bladder: No Hx Pyelonephritis: No Hx Renal (Kidney) Cancer: No Hx Renal Failure: No - ENDOCRINE/METABOLIC Hx Endocrine Disorders: No Hx Adrenal Cancer: No Hx Diabetes Insipidus: No Hx Diabetes Mellitus Type 1: No Hx Diabetes Mellitus Type 2: No Hx Hyperthyroidism: No Hx Hypothyroidism: No Hx Systemic Lupus Erythematosus: No - HEMATOLOGICAL/ONCOLOGICAL Hx Blood Disorders: No Hx AIDS: No Hx Anemia: No Hx Blood Transfusions: No Hx Blood Transfusion Reaction: No Hx Bruising: No Hx Cancer: No Hx Chemotherapy: No Hx Cirrhosis: No Hx Gum Bleeding: No Hx Hemophilia: No Hx Hepatitis A: No Hx Hepatitis B: No Hx Hepatitis C: No Hx Leukemia: No Hx Metastesis: No Hx Shingles: No Hx Sickle Cell Disease: No Hx Unexplained Bleeding: No Hx von Willebrand's Disease: No - INTEGUMENTARY Hx Dermatological Problems: No Hx Basil Cell: No Hx Blanco: No Hx Cellulitis: No Hx Eczema: No Hx Melanoma: No Hx Psoriasis: No Hx Squamous Cell: No - MUSCULOSKELETAL/RHEUMATOLOGICAL Hx Musculoskeletal Disorders: No Hx Arthritis: No Hx Back Pain: No Hx Degenerative Joint Disease: No Hx Falls: Yes Hx Fractures: No Hx Gout: No Hx Herniated Disk: No Hx Myasthenia Gravis: No Hx Osteoarthritis: No Hx Osteomyelitis: No Hx Osteoporosis: No Hx Rhabdomyolysis: No Hx Rheumatoid Arthritis: No Hx Spinal Stenosis: No Hx Unsteady Gait: Yes - GASTROINTESTINAL Hx Gastrointestinal Disorders: Yes (diarrhea) - GENITOURINARY/GYNECOLOGICAL Hx Genitourinary Disorders: No - PSYCHIATRIC Hx Psychophysiologic Disorder: No Hx Substance Use: No - SURGICAL HISTORY Hx Surgeries: No (denies) - ANESTHESIA Hx Anesthesia: No Meds Allergies/Adverse Reactions: Allergies Allergy/AdvReac Type Severity Reaction Status Date / Time No Known Allergies Allergy Verified 04/02/18 03:19 - Medications Medications: Current Medications Aspirin (Aspirin Chewable) 81 mg PO DAILY [facility] Atorvastatin Calcium (Lipitor) 10 mg PO DIN [facility] Folic Acid (Folic Acid) 1 mg PO DAILY [facility] Folic Acid 1 mg/ Thiamine HCl 100 mg/ Multivitamins/Vitamin C 10 ml/ Dextrose 1,011.2 mls @ 100 mls/hr IV .Q10H7M [facility] Last Admin: 04/02/18 06:18 Dose: 100 mls/hr Lorazepam (Ativan) 2 mg IVP Q4 PRN; Protocol PRN Reason: Symptoms of alcohol withdrawl Multivitamins (Thera Tab) 1 tab PO DAILY [facility] Nicotine (Nicoderm Cq) 1 patch TD DAILY [facility] Pantoprazole Sodium (Protonix Ec Tab) 40 mg PO 0600 [facility] Last Admin: 04/02/18 06:18 Dose: 40 mg Thiamine HCl (Vitamin B1 Tab) 100 mg PO DAILY [facility] Physical Exam - Constitutional Appears: No Acute Distress - Head Exam Head Exam: NORMAL INSPECTION - Eye Exam Eye Exam: EOMI, Normal appearance, PERRL Pupil Exam: NORMAL ACCOMODATION - ENT Exam ENT Exam: Mucous Membranes Moist - Neck Exam Neck exam: Positive for: Normal Inspection - Respiratory Exam Respiratory Exam: Clear to Auscultation Bilateral, NORMAL BREATHING PATTERN - Cardiovascular Exam Cardiovascular Exam: REGULAR RHYTHM - GI/Abdominal Exam GI & Abdominal Exam: Normal Bowel Sounds, Soft - Extremities Exam Extremities exam: Positive for: normal inspection - Back Exam Back exam: NORMAL INSPECTION - Neurological Exam Neurological exam: Alert, CN II-XII Intact, Oriented x3 Additional comments: No tremors - Psychiatric Exam Psychiatric exam: Normal Mood - Skin Skin Exam: Normal Color Results - Vital Signs Recent Vital Signs: Last Vital Signs Temp 98.2 F 04/02/18 03:11 Pulse 70 04/02/18 08:59 Resp 17 04/02/18 08:59 BP 151/86 H 04/02/18 08:59 Pulse Ox 99 04/02/18 08:59 - Labs Result Diagrams: 04/02/18 03:17 04/02/18 03:17 Labs: Laboratory Results - last 24 hr 04/02/18 04/02/18 04/02/18 03:17 03:17 03:17 WBC 7.9 RBC 3.87 Hgb 12.9 L Hct 38.8 L MCV 100.3 D MCH 33.3 MCHC 33.2 RDW 12.6 Plt Count 297 MPV 9.2 Sodium 137 Potassium 3.9 Chloride 105 Carbon Dioxide 11 L Anion Gap 26 H BUN 7 Creatinine 1.0 Est GFR ( Amer) > 60 Est GFR (Non-Af Amer) > 60 Random Glucose 155 H Calcium 9.4 Total Bilirubin 0.4 AST 51 ALT 11 Alkaline Phosphatase 92 Lactate Dehydrogenase 462 Total Creatine Kinase 183 Troponin I < 0.01 Total Protein 8.2 Albumin 4.5 Globulin 3.7 Albumin/Globulin Ratio 1.2 Alcohol, Quantitative 10 Assessment & Plan - Assessment and Plan (Free Text) Assessment: 62 yo M with PMH of EtOH abuse and seizures [place] [facility] [place] likely 2/2 EtOH abuse. Plan: - CT head negative - EEG ordered; 2nd seizure this year warrants further evaluation - Cont tx per primary for alcohol abuse/possible withdrawal - Recommend gradual cessation of EtOH and outpatient EtOH rehab Patient seen and discussed in detail with Dr. Barrera. Seven Kumar DO PGY2 <Shiv Barrera - Last Filed: 04/04/18 17:09> Results - Vital Signs Recent Vital Signs: Last Vital Signs Temp 97.8 F 04/03/18 12:00 Pulse 90 04/03/18 12:00 Resp 20 04/03/18 12:00 BP 145/78 04/03/18 12:00 Pulse Ox 99 04/03/18 06:00 - Labs Result Diagrams: 04/03/18 06:00 04/03/18 06:00 Attending/Attestation - Attestation I have personally seen and examined this patient.: Yes I have fully participated in the care of the patient.: Yes I have reviewed all pertinent clinical information: Yes Notes (Text): 04/04/18 17:09 I agree with the assessment and plan: will continue work-up for seizure as outlined.
--- NOTE | 2018-04-02 09:49 | CT ---
Date of service: 04/02/2018 PROCEDURE: CT HEAD WITHOUT CONTRAST. HISTORY: seizure COMPARISON: None available. TECHNIQUE: Axial computed tomography images were obtained through the head/brain without intravenous contrast. Radiation dose: Total exam DLP = 829.97 mGy-cm. This CT exam was performed using one or more of the following dose reduction techniques: Automated exposure control, adjustment of the mA and/or kV according to patient size, and/or use of iterative reconstruction technique. FINDINGS: HEMORRHAGE: No intracranial hemorrhage. BRAIN: No mass effect or edema. No atrophy or chronic microvascular ischemic changes. VENTRICLES: Unremarkable. No hydrocephalus. CALVARIUM: Unremarkable. PARANASAL SINUSES: Unremarkable as visualized. No significant inflammatory changes. MASTOID AIR CELLS: Unremarkable as visualized. No inflammatory changes. OTHER FINDINGS: None. IMPRESSION: Normal CT of the Head.
--- NOTE | 2018-04-02 10:01 | RAD ---
Date of service: 04/02/2018 PROCEDURE: CHEST RADIOGRAPH, 1 VIEW HISTORY: seizure COMPARISON: 01/22/2018 FINDINGS: LUNGS: Clear. PLEURA: No pneumothorax or pleural fluid seen. CARDIOVASCULAR: Aortic calcification the heart is normal in size OSSEOUS STRUCTURES: No significant abnormalities. VISUALIZED UPPER ABDOMEN: Normal. OTHER FINDINGS: None. IMPRESSION: No active disease.
[2018-04-02 14:14] VITALS: BMI 24.0
[2018-04-02] MEDS ORDERED: Pneumococcal 23-Valent Vaccine IM ONE (14:14)
[2018-04-02] MEDS ORDERED: Influenza Vaccine 60 mcg/0.5 mL SYR (4YR UP) IM ONE (14:14)
--- NOTE | 2018-04-02 14:35 | CARD ---
APPROVED REPORT Date of service: 04/02/2018 EKG Measurement Heart [id number] <Conclusion> Normal sinus rhythm Possible Left atrial enlargement Left axis deviation Abnormal ECG
[2018-04-03] MEDS: Pantoprazole 40 mg EC Tab PO SCH (05:49)
[2018-04-03 06:28] LABS: BASO # 0.05 K/mm3 (0.0-2.0); BASO % 0.9 % (0.0-3.0); EOS # 0.1 (0.0-0.7); EOS % 1.4 % (1.5-5.0); GRAN # 2.3 (1.4-6.5); GRAN % 41.7 % (50.0-68.0); HEMOGLOBIN 13.8 g/dL (14.0-18.0); LYMPH # 2.5 (1.2-3.4); LYMPH % 44.9 % (22.0-35.0); MEAN CELL VOLUME 98.6 fl (80.0-105.0); MEAN CORPUSCULAR HEMOGLOBIN 33.1 pg (25.0-35.0); MEAN CORPUSCULAR HGB CONC 33.6 g/dl (31.0-37.0); MONO # 0.6 (0.1-0.6); MONO % 11.1 % (1.0-6.0); RBC 4.17 10^6/uL (3.5-6.1); RED CELL DISTRIBUTION WIDTH 12.5 % (11.5-14.5); WHITE BLOOD COUNT 5.5 10^3/uL (4.5-11.0)
[2018-04-03 06:58] VITALS: O2SAT 99
[2018-04-03 07:03] LABS: ALB/GLOB RATIO 1.1 (1.1-1.8); ALBUMIN 4.7 g/dL (3.0-4.8); ALT/SGPT 19 U/L (7-56); AST/SGOT 52 U/L (17-59); BLOOD UREA NITROGEN 10 mg/dL (7-21); CALCIUM 9.9 mg/dL (8.4-10.5); GFR NON-AFRICAN AMERICAN > 60
[2018-04-03] MEDS ORDERED: Multivitamin Therapeutic Tab PO SCH (10:00)
--- NOTE | 2018-04-03 10:00 | CP.PCM.PN ---
<StacyEmilio - Last Filed: 04/03/18 13:47> Subjective - Date & Time of Evaluation Date of Evaluation: 04/03/18 Time of Evaluation: 09:57 - Subjective Subjective: Neurology Progress Note for Dr. Barrera Patient seen and examined at bedside. No acute overnight events. Patient states he feels well. Patient denies any seizure-like activity, tremors, diaphoresis, CP, SOB, n/v/d, abdominal pain, fever, chills, MICHEL, or dizziness. Objective - Vital Signs/Intake and Output Vital Signs (last 24 hours): Temp Pulse Resp BP Pulse Ox 97.9 F 78 18 132/96 H 99 04/03/18 06:00 04/03/18 06:00 04/03/18 06:00 04/03/18 06:00 04/03/18 06:00 Intake and Output: 04/03/18 04/03/18 06:59 18:59 Intake Total 1780 Output Total 1500 Balance 280 - Medications Medications: Current Medications Aspirin (Aspirin Chewable) 81 mg PO DAILY [facility] Last Admin: 04/03/18 09:39 Dose: 81 mg Atorvastatin Calcium (Lipitor) 10 mg PO DIN [facility] Folic Acid (Folic Acid) 1 mg PO DAILY [facility] Last Admin: 04/03/18 09:39 Dose: 1 mg Lorazepam (Ativan) 2 mg IVP Q4 PRN; Protocol PRN Reason: Symptoms of alcohol withdrawl Multivitamins (Thera Tab) 1 tab PO DAILY [facility] Last Admin: 04/03/18 09:39 Dose: 1 tab Nicotine (Nicoderm Cq) 1 patch TD DAILY [facility] Last Admin: 04/03/18 09:39 Dose: 1 patch Pantoprazole Sodium (Protonix Ec Tab) 40 mg PO 0600 [facility] Last Admin: 04/03/18 05:49 Dose: 40 mg Thiamine HCl (Vitamin B1 Tab) 100 mg PO DAILY [facility] Last Admin: 04/03/18 09:40 Dose: 100 mg - Labs Labs: 04/03/18 06:00 04/03/18 06:00 - Constitutional Appears: No Acute Distress - Head Exam Head Exam: NORMAL INSPECTION - Eye Exam Eye Exam: Normal appearance, PERRL - ENT Exam ENT Exam: Normal Exam - Neck Exam Neck Exam: Normal Inspection - Respiratory Exam Respiratory Exam: Clear to Ausculation Bilateral, NORMAL BREATHING PATTERN - Cardiovascular Exam Cardiovascular Exam: REGULAR RHYTHM - GI/Abdominal Exam GI & Abdominal Exam: Soft, Normal Bowel Sounds - Extremities Exam Extremities Exam: Normal Inspection - Back Exam Back Exam: NORMAL INSPECTION - Neurological Exam Neurological Exam: Alert, Awake, CN II-XII Intact, Oriented x3 Additional comments: no tremors - Psychiatric Exam Psychiatric exam: Normal Affect - Skin Skin Exam: Normal Color Assessment and Plan - Assessment and Plan (Free Text) Assessment: 62 yo M with PMH of EtOH abuse and seizures presents to [facility] for seizure likely 2/2 EtOH abuse. 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 Plan: - EEG showed temporal lobe epilepsy - CT head negative - Recommend loading patient with Dilantin 800 mg today, then 100 mg PO TID starting tomorrow - Follow up with Dr. Barrera in 1 month in clinic - Patient stable from neurological standpoint, at this time we will sign off. Please reconsult if needed. Patient seen and discussed in detail with Dr. Barrera. Seven Kumar, DO PGY2 <Shiv Barrera - Last Filed: 04/04/18 16:51> Objective - Vital Signs/Intake and Output Vital Signs (last 24 hours): Temp Pulse Resp BP Pulse Ox 97.8 F 90 20 145/78 99 04/03/18 12:00 04/03/18 12:00 04/03/18 12:00 04/03/18 12:00 04/03/18 06:00 - Labs Labs: 04/03/18 06:00 04/03/18 06:00 Attending/Attestation - Attestation I have personally seen and examined this patient.: Yes I have fully participated in the care of the patient.: Yes I have reviewed all pertinent clinical information, including history, physical exam and plan: Yes Notes (Text): 04/04/18 16:51 I agree with the assessment and plan: will continue dilantin.
--- NOTE | 2018-04-03 11:19 | PCM.EEG ---
Electroencephalogram Report - Electroencephalogram Report Procedure Date: 04/02/18 Medication: Folic acid, Asa, Lorazepam. Interpretation: Technical Information: This was a 16 -channel EEG, 1-channel EKG routine EEG performed using an Vivoxid machine. Electrodes were applied using the 10/20 international placement system. Start 6;09 PM End; 6;59 pm total time; 50 min Clinical Information: 62 y/o man with hx of epilepsy. Findings; During resting wakefulness there was a symmetric posterior dominant rhythm at 8.5-9.5 Hz, 30-50 uV, which was reactive to eye opening and closing. Drowsiness was associated with fragmentation of the posterior dominant rhythm and with slow roving eye movements seen at 18;32 Light sleep was not recorded. Hyperventilation was not performed. Photic stimulation was performed and there were no changes on the record. Focal abnormality; none 18;45 he had a left temporal lobe seizures, there is a build up of 5 Hz rhythmic activity seen in the left temporal region max at F7, that evolves in the same location until termination. Duration 1 min 30 seconds. Clinical; no description by the tech, no video. ECG was associated with a normal sinus rhythm. Impression: This is an abnormal routine EEG due to the presence of 1- One seizures was capture that originated in the left temporal area. 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 Recommendation: Findings communicated to Dr Barrera.
[2018-04-03] MEDS ORDERED: Phenytoin 250 mg/5 ml Inj IVP ONE (13:49)
[2018-04-03 14:03] VITALS: BP 145/78; PULSE 90; RESP 20; TEMP 97.8
[2018-04-03] MEDS ORDERED: PHENYTOIN IVPB STA (14:17)
[2018-04-03] MEDS ORDERED: SODIUM CHLORIDE 0.9% IVPB STA (14:17)
--- NOTE | 2018-04-03 22:50 | CP.PCM.DIS ---
Provider - Provider Date of Admission: 04/02/18 04:53 Attending physician: Jared Dsouza MD Consults: 04/02/18 05:34 Neurology Consult Routine Comment: Consulting Provider: Opal Ivey Consulting Physician: Opal Ivey Reason for Consult: unprovoked seizure 04/02/18 13:52 Social Work Referral Routine Comment: d/c plan Physician Instructions: Reason For Exam: eval Time Spent in preparation of Discharge (in minutes): 45 Diagnosis - Discharge Diagnosis (1) Alcohol abuse Status: Acute (2) Alcohol withdrawal seizure Status: Acute (3) Seizure Status: Resolved Priority: High Hospital Course - Lab Results Lab Results: Most Recent Lab Values WBC 5.5 10^3/uL (4.5-11.0) D 04/03/18 06:00 RBC 4.17 10^6/uL (3.5-6.1) 04/03/18 06:00 Hgb 13.8 g/dL (14.0-18.0) L 04/03/18 06:00 Hct 41.1 % (42.0-52.0) L 04/03/18 06:00 MCV 98.6 fl (80.0-105.0) 04/03/18 06:00 MCH 33.1 pg (25.0-35.0) 04/03/18 06:00 MCHC 33.6 g/dl (31.0-37.0) 04/03/18 06:00 RDW 12.5 % (11.5-14.5) 04/03/18 06:00 Plt Count 304 10^3/uL (120.0-450.0) 04/03/18 06:00 MPV 10.0 fl (7.0-11.0) 04/03/18 06:00 Gran % 41.7 % (50.0-68.0) L 04/03/18 06:00 Lymph % (Auto) 44.9 % (22.0-35.0) H 04/03/18 06:00 Schley % (Auto) 11.1 % (1.0-6.0) H 04/03/18 06:00 Eos % (Auto) 1.4 % (1.5-5.0) L 04/03/18 06:00 Baso % (Auto) 0.9 % (0.0-3.0) 04/03/18 06:00 Gran # 2.30 (1.4-6.5) 04/03/18 06:00 Lymph # (Auto) 2.5 (1.2-3.4) 04/03/18 06:00 Schley # (Auto) 0.6 (0.1-0.6) 04/03/18 06:00 Eos # (Auto) 0.1 (0.0-0.7) 04/03/18 06:00 Baso # (Auto) 0.05 K/mm3 (0.0-2.0) 04/03/18 06:00 Sodium 136 mmol/L (132-148) 04/03/18 06:00 Potassium 4.0 mmol/L (3.6-5.0) 04/03/18 06:00 Chloride 100 mmol/L (98-107) 04/03/18 06:00 Carbon Dioxide 27 mmol/L (21-33) 04/03/18 06:00 Anion Gap 14 (10-20) 04/03/18 06:00 BUN 10 mg/dL (7-21) 04/03/18 06:00 Creatinine 1.0 mg/dl (0.8-1.5) 04/03/18 06:00 Est GFR ( Amer) > 60 04/03/18 06:00 Est GFR (Non-Af Amer) > 60 04/03/18 06:00 Random Glucose 85 mg/dL (70-110) 04/03/18 06:00 Calcium 9.9 mg/dL (8.4-10.5) 04/03/18 06:00 Phosphorus 4.5 mg/dL (2.5-4.5) 04/03/18 06:00 Magnesium 2.0 mg/dL (1.7-2.2) 04/03/18 06:00 Total Bilirubin 1.1 mg/dL (0.2-1.3) 04/03/18 06:00 AST 52 U/L (17-59) 04/03/18 06:00 ALT 19 U/L (7-56) 04/03/18 06:00 Alkaline Phosphatase 88 U/L (38-126) 04/03/18 06:00 Lactate Dehydrogenase 462 U/L (333-699) 04/02/18 03:17 Total Creatine Kinase 183 U/L (35-230) 04/02/18 03:17 Troponin I < 0.01 ng/mL 04/02/18 03:17 Total Protein 8.8 g/dL (5.8-8.3) H 04/03/18 06:00 Albumin 4.7 g/dL (3.0-4.8) 04/03/18 06:00 Globulin 4.1 gm/dL 04/03/18 06:00 Albumin/Globulin Ratio 1.1 (1.1-1.8) 04/03/18 06:00 Alcohol, Quantitative 10 mg/dL (0-10) 04/02/18 03:17 - Hospital Course Hospital Course: Upon Admission: This is a 62 year old male with PMHx of alcohol abuse with alcohol seizures and withdrawal presenting to the ED via EMS for seizure. Per EMS, patient's witnessed seizure while patient was on bed earlier in the evening. is not present during evaluation and patient is confused limiting history. Patient denies recollection of seizure event as well as events prior to and post se izure. He states his last alcohol drink was one week ago. He currently denies CP, SOB, fevers, headaches, nausea, vomiting, chills, tongue biting, tongue fasciculations, abdominal pain, back pain, urinary/stool incontinence, urinary complaints, numbness, tingling, swelling, recent travel, sickness, trauma and lifestyle changes. 12 point ROS noted here, otherwise unremarkable. Hospital Course: Pt is being worked up for seizure. Neuro was consulted who recommended EEG. EEG eas able to capture one temporally focal seizure. Pt was placed on loading dose of Dilantin 800mg and then placed on 100mg TID. Pt was encouraged to stop etoh intake, and to be compliant with his new medication to prevent future seizures. Neurology stated pt was cleared for d/c with follow up with neurology in 1 month. Plan for discharge was discussed with the pt and the pt expressed understanding off the plan for d/c. The pt was also in agreement of the medical plan to d/c the pt and the importance of medication compliance was once again stressed to the pt and the pts . The pt and his were given the ability to ask any questions or concerns and all question and concerns were addressed prior to d/c. Discharge Exam - Head Exam Head Exam: ATRAUMATIC, NORMAL INSPECTION, NORMOCEPHALIC - Eye Exam Eye Exam: EOMI, Normal appearance, PERRL - Respiratory Exam Respiratory Exam: Prolonged Expiratory Phase, Rales, Stridor, NORMAL BREATHING PATTERN, UNREMARKABLE. absent: Accessory Muscle Use, Rhonchi, Wheezes, Respiratory Distress - Cardiovascular Exam Cardiovascular Exam: RRR, +S1, +S2. absent: Gallop, Rubs - GI/Abdominal Exam GI & Abdominal Exam: Normal Bowel Sounds, Soft. absent: Firm, Guarding, Tenderness - Extremities Exam Extremities exam: normal capillary refill, pedal pulses present - Back Exam Back exam: NORMAL INSPECTION. absent: CVA tenderness (L), CVA tenderness (R) - Neurological Exam Neurological exam: Alert, Oriented x3 - Psychiatric Exam Psychiatric exam: Normal Affect, Normal Mood - Skin Skin Exam: Intact, Normal Color, Warm Discharge Plan - Discharge Medications Prescriptions: Aspirin [Aspirin Chewable] 81 mg PO DAILY #14 chew Atorvastatin [Lipitor] 10 mg PO DIN #14 tab Folic Acid 1 mg PO DAILY #14 tab Multivitamin Therapeutic Tab [Thera Tab] 1 tab PO DAILY #14 tab Phenytoin, Extended [Dilantin Kapseals] 100 mg PO TID #90 cer Thiamine HCl [Vitamin B-1] 100 mg PO DAILY #14 tablet - Follow Up Plan Condition: STABLE Disposition: HOME/ ROUTINE Instructions: Seizures, Adult (DC), Alcohol Withdrawal, Alcohol Abuse and Alcoholism (DC) Additional Instructions: Please take medication as prescribed: - Dilantin 100mg THREE TIMES PER DAY- for seizure prevention - Aspirin 81mg daily - Lipitor 10mg daily - Multivitamin 1 tablet daily - Thiamine 100mg 1 tablet daily - Folic acid 1mg 1 tablet daily Please refrain from drinking alcohol which can cause your seizure episodes. Please follow up at the [facility] at [facility] for a follow up appointment on April 13 at 1pm. If your symptoms worsen, please go to the nearest Emergency Department. Referrals: [facility] [place] [facility] [place]
== END 2018-04-03 18:00 | disposition home or self-care (01) ==
LOC: ED 03:03 → ERH 04:53 → 2RNO 09:05
PROVIDERS: ADMIT Internal Medicine; ATTEND Internal Medicine
DX: F10.239 Alcohol dependence with withdrawal, unspecified (principal); F17.210 Nicotine dependence, cigarettes, uncomplicated; G40.89 Other seizures
CPT/HCPCS: 36415; 70450; 71045; 80053; 80320; 82550; 83615; 83735; 84100; 84484; 85025; 85027; 93005; 99285; G0378; J1165; J3411; J7070

== ENCOUNTER 2018-05-12 11:22 | Emergency (ER) | payer OTHER ==
[2018-05-12 11:22] VITALS: BMI 24.0
[2018-05-12] MEDS ORDERED: Multivitamin (MVI) 10 ML, Thiamine 100 MG, Folic Acid 1 MG in Dextrose 5% In Water 1,00... IV ONE (12:00)
--- NOTE | 2018-05-12 12:11 | ED PDOC ---
Arrival/HPI - General Chief Complaint: Alcohol Ingestion Time Seen by Provider: 05/12/18 11:39 EM Caveat: Uncooperative - History of Present Illness Narrative History of Present Illness (Text): 05/12/18 12:29 62 year old male, with past medical history of alcohol abuse and alcohol withdrawal seizures, presents to emergency department brought in by EMS for public intoxication. HPI and ROS limited due to patient being uncooperative. Time/Duration: Prior to Arrival (brought by EMS ) Symptom Course: Unchanged Activities at Onset: Light Past Medical History - Provider Review Nursing Documentation Reviewed: Yes - Infectious Disease Hx of Infectious Diseases: None - Past Medical History Past Medical History: No Previous (No chronic diseases) - Cardiac Hx Cardiac Disorders: No - Pulmonary Hx Respiratory Disorders: No - Neurological Hx Neurological Disorder: No - HEENT Hx HEENT Disorder: No - Renal Hx Renal Disorder: No Hx Dialysis: No Hx Kidney Stones: No Hx Neurogenic Bladder: No Hx Pyelonephritis: No Hx Renal Cancer: No Hx Renal Failure: No - Endocrine/Metabolic Hx Endocrine Disorders: No Hx Adrenal Cancer: No Hx Diabetes Insipidus: No Hx Diabetes Mellitus Type 1: No Hx Diabetes Mellitus Type 2: No Hx Hyperthyroidism: No Hx Hypothyroidism: No Hx Systemic Lupus Erythematosus: No - Hematological/Oncological Hx Blood Disorders: No - Integumentary Hx Dermatological Disorder: No - Musculoskeletal/Rheumatological Hx Falls: Yes Hx Unsteady Gait: Yes - Gastrointestinal Hx Gastrointestinal Disorders: Yes (diarrhea) - Genitourinary/Gynecological Hx Genitourinary Disorders: No - Psychiatric Hx Psychophysiologic Disorder: No Hx Substance Use: No - Past Surgical History Past Surgical History: No Previous - Anesthesia Hx Anesthesia: No - Suicidal Assessment Feels Threatened In Home Enviroment: No Family/Social History - Physician Review Nursing Documentation Reviewed: Yes Family/Social History: Unknown Family HX Smoking Status: Heavy Smoker > 10 Cigarettes Daily Hx Alcohol Use: Yes (dailky beer sometimes whiskey) Hx Substance Use: No Allergies/Home Meds Allergies/Adverse Reactions: Allergies No Known Allergies Allergy (Verified 04/02/18 03:19) Review of Systems - Review of Systems Systems not reviewed;Unavailable: Uncooperative Physical Exam - Physical Exam Physical Exam Limitations: Uncooperative Vital Signs Reviewed: Yes Temperature: Afebrile Blood Pressure: Normal Pulse: Regular Respiratory Rate: Normal Appearance: Positive for: Well-Appearing, Non-Toxic, Comfortable, Unkept Pain Distress: None Mental Status: Positive for: Alert and Oriented X 3 - Systems Exam Head: Present: Normocephalic Pupils: Present: PERRL Extroacular Muscles: Present: EOMI Conjunctiva: Present: Normal Mouth: Present: Moist Mucous Membranes, Other (dentures intact ) Nose (External): Present: Abrasion (right side of bridge ), Other (bleeding ) Nose (Internal): No: Septal Hematoma Neck: Present: Normal Range of Motion, Trachea Midline. No: MIDLINE TENDERNESS Respiratory/Chest: Present: Clear to Auscultation, Good Air Exchange. No: Respiratory Distress, Accessory Muscle Use Cardiovascular: Present: Regular Rate and Rhythm, Normal S1, S2. No: Murmurs Abdomen: No: Tenderness, Distention, Peritoneal Signs Back: Present: Normal Inspection Upper Extremity: Present: Normal Inspection. No: Cyanosis, Edema Lower Extremity: Present: Normal Inspection. No: Edema Neurological: Present: GCS=15, CN II-XII Intact, Other (speech slurred) Skin: Present: Warm, Dry, Normal Color, Other (no obvious signs of trauma ). No: Rashes Psychiatric: Present: Alert, Oriented x 3, Intoxicated (smells of alcohol ) Medical Decision Making ED Course and Treatment: 05/12/18 12:15 Impression: 62 year old male presents to emergency department brought in by EMS for public intoxication. Plan: -- CT Cervical Spine -- CT Head -- CT Maxillofacial -- EKG -- Labs -- Chest X-ray -- Dextrose -- Reassess and disposition Prior Visits: Notes and results from previous visits were reviewed. Progress Notes: 05/12/18 14:04 Chest X-ray, reviewed by radiologist: IMPRESSION: No active disease. No significant interval change compared to the prior examination(s). 05/12/18 16:27 Patient was taken to CT scan but refused. Patient is now resting comfortably. - RAD Interpretation Radiology Orders: 05/12/18 11:58 CERVICAL SPINE W/O CONTRAST [CT] Stat HEAD W/O CONTRAST [CT] Stat CHEST PORTABLE [RAD] Stat 05/12/18 11:59 MAXILLOFACIAL W/O CONTRAST [CT] Stat - Medication Orders Current Medication Orders: Multivitamins/Vitamin C 10 ml/Thiamine HCl 100 mg/ Folic Acid 1 mg/ Dextrose 1,011.2 mls @ 1,000 mls/hr IV .Q1H1M ONE Stop: 05/12/18 13:00 - Transfer of Care Patient signed out to Dr:: Van Pending Radiology Studies:: CT brain, max fac, c spine Other: clinically sober at midnight - Scribe Statement The provider has reviewed the documentation as recorded by the Scribe Juwan Drake All medical record entries made by the Scribe were at my direction and personally dictated by me. I have reviewed the chart and agree that the record accurately reflects my personal performance of the history, physical exam, medical decision making, and the department course for this patient. I have also personally directed, reviewed, and agree with the discharge instructions and disposition. Disposition/Present on Arrival - Present on Arrival History of DVT/PE: No History of Uncontrolled Diabetes: No Urinary Catheter: No History of Decub. Ulcer: No History Surgical Site Infection Following: None - Disposition Forms: [employer] (Romansh)
[2018-05-12 12:19] LABS: BASO # 0.03 K/mm3 (0.0-2.0); BASO % 0.5 % (0.0-3.0); EOS # 0.1 (0.0-0.7); GRAN # 1.81 (1.4-6.5); GRAN % 28.6 % (50.0-68.0); HEMOGLOBIN 12.9 g/dL (14.0-18.0); LYMPH # 3.8 (1.2-3.4); LYMPH % 60.7 % (22.0-35.0); MEAN CELL VOLUME 99.2 fl (80.0-105.0); MEAN CORPUSCULAR HEMOGLOBIN 32.7 pg (25.0-35.0); MEAN CORPUSCULAR HGB CONC 32.9 g/dl (31.0-37.0); MONO # 0.6 (0.1-0.6); MONO % 9.2 % (1.0-6.0); RBC 3.95 10^6/uL (3.5-6.1); RED CELL DISTRIBUTION WIDTH 13.2 % (11.5-14.5); WHITE BLOOD COUNT 6.3 10^3/uL (4.5-11.0)
[2018-05-12 12:48] LABS: ALB/GLOB RATIO 1.2 (1.1-1.8); ALBUMIN 4.5 g/dL (3.0-4.8); BLOOD UREA NITROGEN 9 mg/dL (7-21); GFR NON-AFRICAN AMERICAN > 60
[2018-05-12 12:59] LABS: ALT/SGPT 23 U/L (7-56); AST/SGOT 50 U/L (17-59)
--- NOTE | 2018-05-12 13:43 | RAD ---
Date of service: 05/12/2018 HISTORY: fall COMPARISON: 04/02/2018 FINDINGS: LUNGS: No active pulmonary disease. PLEURA: No significant pleural effusion identified, no pneumothorax apparent. CARDIOVASCULAR: No atherosclerotic calcification present Normal. OSSEOUS STRUCTURES: No significant abnormalities. VISUALIZED UPPER ABDOMEN: Normal. OTHER FINDINGS: None. IMPRESSION: No active disease. No significant interval change compared to the prior examination(s).
[2018-05-12 19:20] VITALS: RESP 16
[2018-05-12 19:21] VITALS: TEMP 98.3
--- NOTE | 2018-05-12 19:49 | ED PDOC ---
Physical Exam Vital Signs Temp Pulse Resp BP Pulse Ox 05/12/18 19:20 98.3 F 72 16 116/79 100 05/12/18 16:31 81 16 114/79 99 05/12/18 14:43 98.2 F 69 18 109/18 L 98 05/12/18 13:22 64 18 109/78 98 05/12/18 11:22 98 F 86 18 130/78 95 Finger Stick Blood Glucose: 130 Medical Decision Making ED Course and Treatment: 05/12/18 19:05 Case endorsed to me by Dr. Mcgarry pending sobriety and results of CT studies. Patient apparently presented intoxicated with possible facial trauma. Patient has been in the ER for number of hours. Patient CT study was recently performed after refusing. Patient resting comfortably at present time. EXAM: CT Maxillofacial without Intravenous Contrast. Electronically signed on May 12, 2018 8:27:22 PM EST by: Neo Meadows M.D. IMPRESSION: 1. Bilateral ethmoid and maxillary sinusitis is seen. 2. Minimally displaced left nasal bone fracture is seen. EXAM: CT Head without Intravenous Contrast. Electronically signed on May 12, 2018 8:26:37 PM EST by: Neo Meadows M.D. IMPRESSION: No acute intracranial abnormality. EXAM: CT cervical spine Electronically signed on May 12, 2018 8:32:35 PM EST by: Neo Meadows M.D. IMPRESSION: 1. No fracture or spondylolisthesis. 2. Straightening of cervical lordosis is seen, suggesting muscular spasm. 3. Severe multilevel spondylosis. 05/12/18 20:57 Patient is alert and ambulatory with a steady gait in the Emergency room. Patient is stable for discharge. I have discussed the results and plan with the patient, who expresses understanding. Patient in agreement with plan to be discharged home. Patient was instructed to follow up with ENT or return if symptoms worsen or new concerning symptoms arise. - Lab Interpretations Lab Results: Total Bilirubin 0.3 mg/dL (0.2-1.3) 05/12/18 12:00 AST 50 U/L (17-59) 05/12/18 12:00 ALT 23 U/L (7-56) 05/12/18 12:00 Alkaline Phosphatase 77 U/L (38-126) 05/12/18 12:00 Total Protein 8.2 g/dL (5.8-8.3) 05/12/18 12:00 Albumin 4.5 g/dL (3.0-4.8) 05/12/18 12:00 Globulin 3.7 gm/dL 05/12/18 12:00 Albumin/Globulin Ratio 1.2 (1.1-1.8) 05/12/18 12:00 - RAD Interpretation Radiology Orders: 05/12/18 11:58 CERVICAL SPINE W/O CONTRAST [CT] Stat HEAD W/O CONTRAST [CT] Stat CHEST PORTABLE [RAD] Stat 05/12/18 11:59 MAXILLOFACIAL W/O CONTRAST [CT] Stat - Medication Orders Current Medication Orders: Discontinued Medications Multivitamins/Vitamin C 10 ml/Thiamine HCl 100 mg/ Folic Acid 1 mg/ Dextrose 1,011.2 mls @ 1,000 mls/hr IV .Q1H1M ONE Stop: 05/12/18 13:00 Last Admin: 05/12/18 13:52 Dose: 1,000 mls/hr eMAR Start Stop Document 05/12/18 13:52 [facility] (Rec: 05/12/18 13:52 [facility] [id number]) Intravenous Solution Start Date 05/12/18 Start Time 13:52 End Date 05/12/18 End time 14:52 Total Infusion Time 60 - Scribe Statement The provider has reviewed the documentation as recorded by the Deysi Tena Provider Scribe Attestation: All medical record entries made by the Scribe were at my direction and personally dictated by me. I have reviewed the chart and agree that the record accurately reflects my personal performance of the history, physical exam, medical decision making, and the department course for this patient. I have also personally directed, reviewed, and agree with the discharge instructions and disposition. Disposition/Present on Arrival - Present on Arrival Any Indicators Present on Arrival: No History of DVT/PE: No History of Uncontrolled Diabetes: No Urinary Catheter: No History of Decub. Ulcer: No History Surgical Site Infection Following: None - Disposition Have Diagnosis and Disposition been Completed?: Yes Diagnosis: Alcohol abuse, Nasal fracture, Sinusitis Disposition: HOME/ ROUTINE Disposition Time: 20:51 Patient Plan: Discharge Patient Problems: Current Active Problems Problem Status Onset Alcohol abuse Acute Nasal fracture Acute Sinusitis Acute Condition: GOOD Discharge Instructions (ExitCare): Sinusitis, Adult (DC), Nose Fracture (DC), Alcohol Abuse and Alcoholism (DC), Alcohol Intoxication (ED), Abuse of Alcohol (ED), Alcohol Dependence (ED) Additional Instructions: Take meds as prescribed/avoid alcohol use/follow up with the ear/nose/throat doctor this week Prescriptions: Amoxicillin/Clavulanate [Augmentin 875 MG-125 MG] 1 tab PO BID #20 tab Referrals: Alcoholics Anonymous [Outside] - Follow up with primary Tray Kennedy DO [Staff Provider] - Follow up with primary Forms: [employer] ([place]ian)
[2018-05-12 21:39] VITALS: BP 118/74; PULSE 70; O2SAT 99
--- NOTE | 2018-05-13 09:02 | CT ---
Date of service: 05/12/2018 PROCEDURE: CT HEAD WITHOUT CONTRAST. HISTORY: fall COMPARISON: 04/02/2018. TECHNIQUE: Axial computed tomography images were obtained through the head/brain without intravenous contrast. Supplemental Coronal and Sagittal projections created and reviewed. Radiation dose: Total exam DLP = 912.11 mGy-cm. This CT exam was performed using one or more of the following dose reduction techniques: Automated exposure control, adjustment of the mA and/or kV according to patient size, and/or use of iterative reconstruction technique. FINDINGS: HEMORRHAGE: No intracranial hemorrhage. BRAIN: No mass effect or edema. No atrophy or chronic microvascular ischemic changes. VENTRICLES: Unremarkable. No hydrocephalus. CALVARIUM: Unremarkable. PARANASAL SINUSES: Chronic sinusitis primarily affecting both mastoid air cells. MASTOID AIR CELLS: Unremarkable as visualized. No inflammatory changes. OTHER FINDINGS: None. IMPRESSION: No acute intracranial abnormalities. No significant findings to account for the clinical presentation. No significant interval change compared to the prior examination(s). Concordant results (preliminary interpretation) provided by [facility] [facility]. Procedure Completed: 18:58 Preliminary Report: Dictated and Authenticated: 20:26. Final Interpretation: 08:58. May 13, 2018
--- NOTE | 2018-05-13 09:09 | CT ---
Date of service: 05/12/2018 PROCEDURE: CT MAXILLOFACIAL BONES WITHOUT CONTRAST HISTORY: facial trauma COMPARISON: 04/23/[address] TECHNIQUE: Contiguous axial CT images of the maxillofacial bones were obtained. Coronal and sagittal reformats were generated. Radiation dose: Total exam DLP = 807.42 mGy-cm. This CT exam was performed using one or more of the following dose reduction techniques: Automated exposure control, adjustment of the mA and/or kV according to patient size, and/or use of iterative reconstruction technique. FINDINGS: NASAL BONES: Evidence of old nasal trauma. Old nasal fractures and deviation of the bony nasal septum identified. No acute findings. ORBITS: Unremarkable. PARANASAL SINUSES/ MASTOIDS: Clear. MAXILLA: Chronic changes primarily related to dental disease. MANDIBLE/ TEMPOROMANDIBULAR JOINTS: Unremarkable. SKULL BASE: Unremarkable. TEMPORAL BONES: Middle ears and mastoid grossly unremarkable. OTHER FINDINGS: Stable deformity related to prior trauma primarily affecting the anterior wall of both maxillary sinuses to greater degree on the right than the left. Considerable and chronic dental disease noted primarily affecting upper teeth and maxilla IMPRESSION: No acute or significant findings related to/ accounting for the clinical presentation. Additional benign and/or incidental findings described above. No significant interval change compared to the prior examination(s). Concordant results (preliminary interpretation) provided by [employer]. Procedure Completed: 19:02. Preliminary Report: Dictated and Authenticated: 20:27. Final Interpretation: 09:06. May 13, 2018
--- NOTE | 2018-05-13 09:13 | CT ---
Date of service: 05/12/2018 PROCEDURE: CT Cervical Spine without contrast HISTORY: fall COMPARISON: None available. TECHNIQUE: Axial computed tomography images were obtained of the cervical spine without the use of intravenous contrast. Coronal and sagittal reformatted images were created and reviewed. Radiation dose: Total exam DLP = 418.46 mGy-cm. This CT exam was performed using one or more of the following dose reduction techniques: Automated exposure control, adjustment of the mA and/or kV according to patient size, and/or use of iterative reconstruction technique. FINDINGS: VERTEBRAE: No fracture. Normal alignment. No destructive bony lesion. DISCS/SPINAL CANAL/NEURAL FORAMINA: Multilevel degenerative changes including disc space narrowing at C3-4, C4-5, C5-6 and C6-7. Anterior non marginal osteophyte formation noted at multiple levels. Proliferative hypertrophic bar formation C4-5 including changes extending into the right neural foramen, C5-C6 with changes extending asymmetrically into the right neural foramen compared to the left and C6-7 with bilaterally symmetric foraminal narrowing. Discs heights are grossly preserved. PARASPINAL SOFT TISSUES: Unremarkable. OTHER FINDINGS: Proximal esophageal dilatation of uncertain etiology/significance. Emphysematous changes noted in visualized upper lung fernández primarily upper lobes. IMPRESSION: No acute findings related to/ accounting for the clinical presentation. Cervical spondylotic changes C3-4 through C6-7. Concordant results (preliminary interpretation) provided by [employer]. Procedure Completed: 19:05. Preliminary Report: Dictated and Authenticated: 20:32. Final Interpretation: 09:09. May 13, 2018
== END 2018-05-12 21:10 | disposition home or self-care (01) ==
LOC: ED 11:22
DX: F10.10 Alcohol abuse, uncomplicated (principal); S02.2XXA Fracture of nasal bones, initial encounter for closed fracture; X58.XXXA Exposure to other specified factors, initial encounter; J32.0 Chronic maxillary sinusitis; J32.2 Chronic ethmoidal sinusitis; F17.210 Nicotine dependence, cigarettes, uncomplicated
CPT/HCPCS: 70450; 70486; 71045; 72125; 80053; 80320; 83735; 85025; 96360; 99285; J3411; J7070